=== PATIENT | female | born 1960 | race Caucasian/White ===

== ENCOUNTER 2023-04-21 10:29 | Outpatient (AMB) | payer OTHER, SELFPAY ==
--- NOTE | 2023-04-21 11:14 | AM.OFFWIN_ITS ---
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 Patient Tobacco Use Status: Current everyday Tobacco user Allergies acetaminophen [Percocet] Adverse Reaction (Unknown, Verified 04/21/23 11:14) N/V oxycodone [Percocet] Adverse Reaction (Unknown, Verified 04/21/23 11:14) N/V Do you need a note to return to daycare/school/sports/work: No HPI HPI Comments History of Present Illness Details This is a 62-year-old female with no stated past medical history who uses tobacco daily presenting for evaluation of cough that she has had for the past 3 weeks. Patient states that her cough is significantly worse at night when she is lying down and she will produce mucus. Patient reports mild shortness of breath but denies having any fevers, chills or chest pain. Patient has been using Robitussin [id number] for her cough. Patient denies any recent sick contacts. [facility] Social History Patient Tobacco Use Status: Current everyday Tobacco user Review of Systems Const All systems reviewed & are unremarkable except as noted in HPI and below Eyes Reports no additional complaints ENT Reports no additional complaints Card Denies chest pain and Denies rapid heart rate Resp Reports no additional complaints, Reports cough, Denies hemoptysis, Denies pain with cough, Denies wheezing and Reports other (cough worse when supine) Musc Reports no additional complaints Aller/Immun Denies wheezing Physical Exam Vital Signs: Last Vital Signs Temp 97.9 F 04/21/23 11:34 Pulse 79 04/21/23 11:34 BP 128/70 04/21/23 11:34 Pulse Ox 95 04/21/23 11:34 Oxygen Delivery Method Room Air 04/21/23 11:34 BMI result Body Mass Index 28.4 Const General: cooperative, comfortable and no acute distress Nutritional Appearance: average body habitus Orientation/consciousness: patient oriented x3 Limitations: no limitations HEENT Head: Yes normal to inspection and Yes normocephalic Ears: hearing grossly normal bilaterally, external ears normal, TM's normal bilaterally and EAC's normal Face and sinus: Yes normal facial exam and Yes sinuses nontender Mouth: mucous membranes dry (dry mucous membranes) Teeth and gingiva: dentition normal Throat: Yes posterior oropharynx normal and No postnasal drainage Eyes Eyelids: Yes eyelids normal Conjunctivae: conjunctivae normal EOM: EOMs intact bilaterally Neck Lymphatic: no lymphadenopathy noted Resp Effort & Inspection: normal respiratory effort, able to speak in complete sentences, no cough, no respiratory distress and not tachypneic Auscultation: clear to auscultation bilaterally, no wheezes and diminished lung sounds on the right in the lower lung bowden and on the left in the lower lung bowden Cardio Rate: regular rate Rhythm: regular rhythm Neuro General: patient oriented x3 Psych Appearance: grossly normal Mental Status: mental status grossly normal Insight: Good insight present (Psych) Judgement: Good judgement present (Psych) Results Reviewed Results Reviewed: Chest x.ray reveals no acute findings. Assessment & Plan Assessment & Plan (1) Tobacco use: Code(s): Z72.0 - Tobacco use Plan: Smoking cessation strategies discussed. (2) Cough: Comment: There are no acute findings noted on chest x-ray. Code(s): R05.9 - Cough, unspecified Qualifiers: Cough type: acute Qualified Code(s): R05.1 - Acute cough Plan: Mucinex [id number] daily x7 days, increase clear fluids daily, discussed smoking cessation. Orders: Orders XR chest 2V Today R05.9 - Cough, unspecified, Z72.0 - Tobacco use Coding Level of Care Code New Pt Level 4 (02173) Diagnoses Tobacco use Z72.0 Acute cough R05.1 Cough type: acute Time Spent (min) 30
[2023-04-21 11:34] VITALS: BP 128/70; PULSE 79; TEMP 36.6; O2SAT 95; BMI 28.4
== END 2023-04-21 14:05 | disposition home or self-care (01) ==
PROVIDERS: Visit Provider Physician Assistant
DX: Z72.0 Tobacco use (principal); R05.1 Acute cough
CPT/HCPCS: 99051; 99204

== ENCOUNTER 2023-04-21 11:54 | Outpatient (REF) | payer OTHER, SELFPAY ==
--- NOTE | ~2023-04-21 | XR_ITS ---
EXAMINATION: XR CHEST 2 VIEW CLINICAL INFORMATION: Cough COMPARISON: None TECHNIQUE: PA and lateral views of the chest obtained. FINDINGS: The lungs are clear. There are no pleural effusions. The cardiomediastinal silhouette is normal. XR/XR chest 2V IMPRESSION: No acute cardiopulmonary disease.
== END 2023-04-21 11:55 | disposition home or self-care (01) ==
LOC: HO.HMGCX 11:54
PROVIDERS: Visit Provider Physician Assistant
DX: R05.9 Cough, unspecified (principal); Z72.0 Tobacco use
CPT/HCPCS: 71046

== ENCOUNTER 2023-05-31 14:09 | Outpatient (AMB) | payer OTHER, SELFPAY ==
--- NOTE | 2023-05-31 14:16 | A.OFFPC_ITS ---
Vital Signs 05/31/23 14:18 Height 5 ft 1 in Weight 149 lb 8 oz BMI 28.2 BP 122/78 Blood Pressure Location Rt brachial Position Sitting Pulse 91 Pulse Source Pulse Oximeter Pulse Oximetry (%) 97 Oxygen Delivery Method Room Air Intake Visit Reasons: Annual PE/Est. care Intake Note: Pt is here est care pt needs referral for colon screening pt needs a referral for mammogram Allergies oxycodone [Percocet] Adverse Reaction (Unknown, Verified 05/31/23 14:35) N/V Medication List - Last Reconciled 05/31/23 by BASILIA Beal No Known Home Meds Tobacco use date assessed: 05/31/23 Dental Screening Dental Screen Date: 05/31/23 Did you have a dental visit in the last 12 months?: No Did you have a dental problem in the last 6 months where you did not have access to dental care?: No Was dental information given to patient?: No HPI HPI Comments History of Present Illness Details Patient is a 62-year-old female who I am meeting for the 1st time. Patient was seen in our walk-in clinic 1 month prior for cough, had chest x-ray which revealed no remarkable findings. Patient is current tobacco user. Patient is current EtOH user estimates 5-6 drinks per night. Will draw fasting labs. Patient is due for colonoscopy, will refer. Patient is due for mammogram, will refer. Will refer patient to thoracic surgery for low-dose CT scan cancer screen. Will order patient pulmonary function test. Patient denies referral to OBGYN Patient states she still has intermittent cough. Occasional chest tightness. Will prescribe albuterol inhaler. Will order EKG. Patient denies shortness of breath but does state that after walking up stairs she gets dyspnea on exertion. Denies chest pain, dizziness, nausea, numbness, vomiting, diarrhea PFSH Surgical History (Updated 05/31/23 @ 14:54 by BASILIA Beal) H/O cervical spine surgery Family History Brother Mental health disorder Social History (Updated 05/31/23 @ 14:55 by BASILIA Beal) Housing: House Alcohol intake: current Comment: 5 -6 drinks per night. Patient Tobacco Use Status: Current everyday Tobacco user Cigarette Packs Per Day: 0.5 Cigarettes Per Day: 10 e-Cigarette/Vaping Use: Never Used Second Hand Smoke Exposure: No service: No Current occupational status: retired Questionnaire PHQ-9 Over the last 2 weeks, how often have you been bothered by any of the following problems? 1. Little interest or pleasure in doing things: not at all 2. Feeling down, depressed, or hopeless: not at all 3. Trouble falling or staying asleep, or sleeping too much: not at all 4. Feeling tired or having little energy: not at all 5. Poor appetite or overeating: not at all 6. Feeling bad about yourself - or that you are a failure or have let yourself or your family down: not at all 7. Trouble concentrating on things, such as reading the newspaper or watching television: not at all 8. Moving or speaking so slowly that other people could have noticed. Or the o pposite - being so fidgety or restless that you have been moving around a lot more than usual: not at all 9. Thoughts that you would be better off or of hurting yourself in some way: not at all Total score: 0 Depression Screening Interpretation: Negative Depression Screening Done: Yes 49822 - PHQ-9 Billing: Yes Source: Developed by Drs. Artie Veloz, Felipa Vasquez, Pankaj Carey and colleagues, with an educational tucker from [email or web address]. Thrive Questionnaire Date Thrive assessed: 05/31/23 I am a: Patient What is your living situation today?: I have a steady place to live Within the past 12 months, did the food you bought not last and you didn't have the money to get more?: Never true Within the past 12 months, did you worry whether your food would run out before you got money to buy more?: Never true Do you have trouble paying for medicines?: No Do you have trouble getting transportation to medical appointments?: No Do you have trouble paying your heating and electricity bill?: No Do you have trouble taking care of your child, family member or friend?: No Do you have trouble with day-to-day activities such as bathing, preparing meals, shopping, managing finances, etc.?: No Are you currently unemployed and looking for a job?: No Are you interested in more education?: No THRIVE Score: 0 AUDIT C Alcohol Use Questionnaire (AUDIT-C) 1. How often do you have a drink containing alcohol?: 2-3 times a week 2. How many drinks containing alcohol do you have on a typical day when you are drinking?: 5 or 6 3. How often do you have six or more drinks on one occasion?: Never Total Score: 5 PETRONA-7 AMB Questionnaire PETRONA-7 Date PETRONA - 7 assessed: 05/31/23 Feeling nervous, anxious, or on edge: 0 = Not at all Not being able to stop or control worryin = Not at all Worrying too much about different things: 0 = Not at all Trouble relaxin = Not at all Being so restless that it is hard to sit still: 0 = Not at all Becoming easily annoyed or irritable: 0 = Not at all Feeling afraid as if something awful might happen: 2 = More than half the days Total PETRONA-7 score (0-4 normal; 5-9 mild; 10-14 moderate; 15-21 severe): 2 Source: Developed by Drs. Artie Veloz, Felipa Vasquez, Pankaj Carey and colleagues, with an educational tucker from [email or web address]. PETRONA-7 Assessment Billing PETRONA-7 Assessment Tool: PETRONA-7 Assessment 31884 Review of Systems Const All systems reviewed & are unremarkable except as noted in HPI and below Denies headache(s) Eyes Reports floaters ENT Denies dizziness, Denies otalgia, Denies headache(s) and Denies sore throat Card Denies chest pain, Denies dyspnea and Reports dyspnea on exertion (Walking up stairs or long distances) Resp Denies dyspnea, Reports dyspnea on exertion (Walking up stairs or long distances) and Reports wheezing GI Reports diarrhea, Reports nausea and Reports vomiting Neuro Denies dizziness and Denies headache(s) Aller/Immun Reports wheezing Physical exam (Primary Care) Vital Signs: Last Vital Signs Pulse 91 05/31/23 14:18 BP 122/78 05/31/23 14:18 Pulse Ox 97 05/31/23 14:18 Oxygen Delivery Method Room Air 05/31/23 14:18 Care Plan Goal for BP management: Vital signs reviewed stable. BMI result Body Mass Index 28.2 Tobacco/Smoking Status: Tobacco use Status Tobacco use date assessed 05/31/23 05/31/23 14:25 Patient Tobacco Use Status Current everyday Tobacco 05/31/23 14:25 e-Cigarette/Vaping Use Never Used 05/31/23 14:25 Are you ready to quit: No Depression Screening Interpretation: Negative Const Other: Appearance: Alert.? Oriented X3.? No acute distress.? Head: Normocephalic. Eyes: Pupils equal, round and reactive to light.? ENT: Pharynx normal.? Neck: Normal inspection.? Neck supple.? CVS: Normal heart rate and rhythm.? Pulses normal.? Respiratory: No respiratory distress.? Bilateral wheeze upper lobes. Neuro: Oriented X 3.? No motor deficit.? No sensory deficit. CN 2-12 intact Office Procedures EKG [id number], Complete Assessment and Plan Assessment & Plan (1) Cough: Comment: There are no acute findings noted on chest x-ray. Will order PFT. Code(s): R05.9 - Cough, unspecified Qualifiers: Cough type: acute Qualified Code(s): R05.1 - Acute cough (2) Tobacco use: Comment: Will refer patient to lung cancer screen Code(s): Z72.0 - Tobacco use (3) DAMON (dyspnea on exertion): Comment: Will order albuterol sulfate and PFTs. Patient had abnormal EKG with left bundle branch block. Will also refer echocardiogram and Cardiology. Code(s): R06.09 - Other forms of dyspnea (4) Left bundle branch block: Comment: Will order echocardiogram. Will refer to cardiology. Code(s): I44.7 - Left bundle-branch block, unspecified Plan: Take your medications as prescribed. If you were prescribed antibiotics today, it is important that you take your medication to their entirety, do not skip any doses, do not finish them early. Follow-up with your primary care provider this week. Return to the emergency department with new or worsening symptoms. Such as fevers, chills, chest pain, shortness of breath, nausea, vomiting, dizziness, headache, vision changes, lethargy In case of emergency call 911 Plan follow up in 3 months. Orders: Orders MM tomosynthesis screening BI Today Z12.31 - Encounter for screening mammogram for malignant neoplasm of breast Complete Blood Count Auto Diff Today Z13.0 - Encounter for screening for diseases of the blood and blood-forming organs and certain disorders involving the immune mechanism AMB EKG-In Office Today Z13.6 - Encounter for screening for cardiovascular disorders Comprehensive Met. Panel Today Z91.89 - Other specified personal risk factors, not elsewhere classified Vitamin D 25-OH (D2 and D3) Today Z13.21 - Encounter for screening for nutritional disorder Vitamin B6 Today Z13.21 - Encounter for screening for nutritional disorder Vitamin B12 Today Z91.89 - Other specified personal risk factors, not elsewhere classified UA CC w/rflx Micro + Cult Today Z13.89 - Encounter for screening for other disorder TSH reflex Free T4 Today Z13.29 - Encounter for screening for other suspected endocrine disorder Lipid Panel Today Z13.220 - Encounter for screening for lipoid disorders PFT pulmonary function test Today R06.09 - Other forms of dyspnea Referrals Gastroenterology Referral Z12.11 - Encounter for screening for malignant neoplasm of colon Thoracic Surgery Referral Z12.2 - Encounter for screening for malignant neoplasm of respiratory organs Medications: New albuterol sulfate 90 mcg/actuation 2 puffs inhalation Q6H PRN 6.7 grams 0RF shortness of breath or wheezing Coding Level of Care Code Est Pt Level 4 (81915) Diagnoses Acute cough R05.1 Cough type: acute Tobacco use Z72.0 DAMON (dyspnea on exertion) R06.09 Left bundle branch block I44.7 CPT Codes EKG - CPT: 60402-[id number], Complete ([id number]) Additional Codes PETRONA-7 Assessment Billing - PETRONA-7 Assessment Tool: PETRONA-7 Assessment 13651 ([id number]) Time Spent (min) 38
[2023-05-31 14:18] VITALS: BP 122/78; PULSE 91; O2SAT 97; BMI 28.2
== END 2023-05-31 15:13 | disposition home or self-care (01) ==
PROVIDERS: Visit Provider Nurse Practitioner Primary Care
DX: R06.09 Other forms of dyspnea (principal); I44.7 Left bundle-branch block, unspecified
CPT/HCPCS: 93000; 99214

== ENCOUNTER 2023-07-09 12:46 | Outpatient (REF) | payer OTHER, SELFPAY ==
--- NOTE | ~2023-07-09 | MM_ITS ---
EXAMINATION: MM SCREENING DIGITAL BREAST TOMOSYNTHESIS, BILATERAL CLINICAL INFORMATION: Screening. Asymptomatic. COMPARISON: Mammography: This study is compared with the only prior mammogram from 2009. TECHNIQUE: Digital breast tomosynthesis is performed in both the craniocaudal and mediolateral oblique views along with computer-aided detection (CAD). Synthesized 2D images are generated from the tomosynthesis. FINDINGS: There are scattered areas of fibroglandular density (ACR BI-RADS breast composition Category b). There are no significant masses, abnormal calcifications, or other abnormalities. MM/MM tomosynthesis screening BI IMPRESSION: No mammographic evidence of malignancy. ASSESSMENT: BI-RADS BI-RADS 1 - Negative RECOMMENDATION: Routine annual mammography screening. 1 year F/U This examination should not preclude the clinical evaluation of a suspicious palpable abnormality. This patient's information was entered into a reminder system with a target due date for their next mammogram.
== END 2023-07-09 12:47 | disposition home or self-care (01) ==
LOC: HO.MAMMO 12:46
PROVIDERS: PCP Nurse Practitioner Primary Care; Visit Provider Nurse Practitioner Primary Care
DX: Z12.31 Encounter for screening mammogram for malignant neoplasm of breast (principal)
CPT/HCPCS: 77063; 77067

== ENCOUNTER → 2023-07-09 13:30 | Outpatient (BNV) | payer OTHER, SELFPAY | PROVIDERS: PCP Nurse Practitioner Primary Care; Visit Provider Radiology Diagnostic Radiology | DX: Z12.31 Encounter for screening mammogram for malignant neoplasm of breast (principal) | CPT/HCPCS: 77063; 77067 ==

== ENCOUNTER 2023-11-16 01:39 | Emergency (ER) | payer OTHER, SELFPAY ==
--- NOTE | 2023-11-16 | ECG_ITS ---
Test Reason : CHEST PAIN Blood Pressure : / mmHG Vent. Rate : 105 BPM Atrial Rate : 105 BPM P-R Int : 148 ms QRS Dur : 166 ms QT Int : 402 ms P-R-T Axes : 066 -02 139 degrees QTc Int : 531 ms Sinus tachycardia Left bundle branch block Abnormal ECG No previous ECGs available Referred By: Generic ED Physician Electronically Signed By:VANGIE WAKEFIELD
--- NOTE | ~2023-11-16 | XR_ITS ---
EXAMINATION: XR CHEST CLINICAL INFORMATION: Dyspnea. COMPARISON: April 21, 2023. TECHNIQUE: Frontal view of the chest was obtained. FINDINGS: The cardiomediastinal silhouette is stable. There is no focal lung consolidation or pleural effusion. The bony structures and the soft tissues are unremarkable. XR/XR chest 1V IMPRESSION: No acute cardiopulmonary process. Electronically signed by: Deejay Pimentel MD 11/16/2023 03:39 AM EDT
[2023-11-16 01:44] VITALS: BP 113/79; PULSE 104; RESP 22; TEMP 36.8; O2SAT 95; BMI 24.3
[2023-11-16 02:09] LABS: MANUAL DIFF FLAG NO
[2023-11-16 02:10] LABS: Basophils Percent Auto 0.3 % (0-2); Eosinophils Absolute Auto 0.2 X10*3/uL (0.0-0.4); Eosinophils Percent Auto 2.7 % (0-4); Hematocrit 42.7 % (37.0-47.0); Hemoglobin 14.4 g/dl (12.0-16.0); Imm Gran Abs Auto 0.03 X10*3/uL (0.00-0.03); Imm Gran Pct Auto 0.4 % (0.0-0.4); Lymphocytes Percent Auto 29.8 % (20-40); Mean Corpuscular HGB Conc 33.7 g/dl (31.0-35.0); Mean Corpuscular Hemoglobin 32.6 pg (27.0-33.0); Mean Corpuscular Volume 96.6 fL (80.0-98.0); Mean Platelet Volume 9.4 fL (9.4-12.3); Monocytes Absolute Auto 0.8 X10*3/uL (0.1-1.2); Monocytes Percent Auto 12.2 % (2-11); Neutrophils Absolute Auto 3.7 x10*3/uL (2.0-8.3); Neutrophils Percent Auto 54.6 % (45-73); Platelet Count 194 X10*3/uL (160-400); Red Blood Count 4.42 X10*6/uL (4.20-5.50); Red Cell Distribution Width 13.6 % (11.0-16.0); White Blood Count 6.7 X10*3/uL (4.8-10.8)
[2023-11-16 02:24] LABS: Alanine Aminotransferase 27 U/L (0-31); Albumin Level 3.9 g/dL (3.5-5.0); Alkaline Phosphatase 94 U/L (39-117); Anion Gap 14 (12-20); Aspartate Amino Transferase 26 U/L (5-31); Bilirubin Total 0.4 mg/dL (0.0-1.0); Blood Urea Nitrogen 4 mg/dL (9-16); Carbon Dioxide 19 mmol/L (22-29); Chloride 106 mmol/L (96-108); Creatinine Clr Calc Pharmacy 70.9; Estimated Glomerular Filt Rate > 60; Glucose Random 102 mg/dL (60-115); Potassium 4.1 mmol/L (3.3-5.1); Sodium 135 mmol/L (135-145); Total Protein 6.3 g/dL (6.5-8.0)
[2023-11-16 02:30] LABS: Troponin-I High Sensitivity 10.5 ng/L (<3.5-17.0)
[2023-11-16 02:46] LABS: Influenza A PCR NEGATIVE (Negative); Influenza B PCR NEGATIVE (Negative); Resp Syncy Virus RNA Qual PCR NEGATIVE (Negative); SARS COV2 PCR INHOUSE NEGATIVE (Negative)
--- NOTE | 2023-11-16 03:45 | ED_ITS ---
HPI - General Adult General Chief complaint: Dyspnea Stated complaint: diff breathing Time Seen by Provider: 11/16/23 03:45 History of Present Illness ED Provider: Lyudmila TIWARI narrative: The patient is a 63-year-old female who has been feeling worse over the last 5 days with increasing cough and sputum production. She says that when she lays down she feels that she gets increasing congestion in her chest so that she can not get any rest lying down and she can not sleep. No definite fevers. Related Data Previous Rx's ?Medication ?Instructions ?Recorded albuterol sulfate 90 mcg/actuation 2 puff inhalation Q6H PRN 05/31/23 aerosol inhaler shortness of breath or wheezing #6.7 grams albuterol sulfate 90 mcg/actuation 2 puff inhalation Q4-6H PRN 11/16/23 aerosol inhaler shortness of breath or wheezing #8.5 grams azithromycin 250 mg tablet 250 mg PO DAILY 4 days #4 tabs 11/16/23 prednisone 20 mg tablet 20 mg PO DAILY #12 tabs 11/16/23 Allergies Allergy/AdvReac Type Severity Reaction Status Date / Time oxycodone [Percocet] AdvReac Unknown N/V Verified 11/16/23 01:47 Review of Systems 2 Review of Systems: Yes all other systems are reviewed and are negative PMFSH Past Medical History Medical History (Updated 11/16/23 @ 06:28 by Angel Luis Coreas MD) Nicotine dependence, cigarettes, uncomplicated Surgical History (Updated 07/30/23 @ 15:13 by Rocio Loo PA-C) History of cervical spinal surgery Family History Family History Brother Mental health disorder Social History Social History (Updated 05/31/23 @ 14:55 by BASILIA Beal) Housing: House Alcohol intake: current Comment: 5 -6 drinks per night. Patient Tobacco Use Status: Current everyday Tobacco user Cigarette Packs Per Day: 0.5 Cigarettes Per Day: 10 e-Cigarette/Vaping Use: Never Used Second Hand Smoke Exposure: No Advance Directives: No Advance Directives Information Provided: No service: No Current occupational status: retired Physical Exam ED Vital Signs: Vital Signs - 24 hr 11/16/23 01:44 11/16/23 04:10 11/16/23 04:23 Temperature 98.3 F 97.7 F Pulse Rate 104 H 95 95 Respiratory Rate 22 H 16 16 Blood Pressure 113/79 133/72 Pulse Oximetry 95 98 Oxygen Delivery Method Room Air Room Air BMI result Body Mass Index 24.3 Const Other: The patient is awake and alert. She does not appear in distress. HENMT Other: Face is symmetrical. Mucous membranes moist. Eyes General: appearance normal, both eyes and all related structures Neck Neck: Yes no JVD Resp Other: The patient has a lot of expiratory wheezes. Inspiratory breath sounds are clear but her expiratory breath sounds are very wheezy and rhonchorous. No increased work of breathing. Cardio Rate: regular rate Rhythm: regular rhythm Heart sounds: S1 normal heart sound present and S2 normal heart sound present Skin Other: Skin is dry and unremarkable. Neuro Other: The patient is awake and alert with a normal mental status. Cranial nerves are grossly intact. She moves her extremities normally. Extrem Other: No calf swelling or tenderness, no pedal edema, no asymmetry Medications Administered Discontinued Medications Generic Name Dose Route Start Last Admin Trade Name Freq PRN Reason Stop Dose Admin Azithromycin 500 mg 11/16/23 03:50 11/16/23 04:10 Azithromycin 500 Mg Tablet PO 11/16/23 03:51 500 mg ONCE ONE Administration Albuterol Sulfate 2.5 mg/ 0 mg 11/16/23 03:50 11/16/23 04:07 Albuterol/Ipratropium 3 ml INHALE 11/16/23 03:51 5 dose ONCE ONE Administration Albuterol Sulfate 2.5 mg/ 0 mg 11/16/23 05:07 11/16/23 05:18 Albuterol/Ipratropium 3 ml INHALE 11/16/23 05:08 5 dose ONCE ONE Administration Prednisone 60 mg 11/16/23 03:50 11/16/23 04:10 Prednisone 20 Mg Tablet PO 11/16/23 03:51 60 mg ONCE ONE Administration Medical Decision Making Lab Data 11/16/23 02:03 11/16/23 02:03 Labs: Lab Results 11/16/23 Range/Units 02:03 WBC 6.7 (4.8-10.8) X10*3/uL RBC 4.42 (4.20-5.50) X10*6/uL Hgb 14.4 (12.0-16.0) g/dl Hct 42.7 (37.0-47.0) % MCV 96.6 (80.0-98.0) fL MCH 32.6 (27.0-33.0) pg MCHC 33.7 (31.0-35.0) g/dl RDW 13.6 (11.0-16.0) % Plt Count 194 (160-400) X10*3/uL MPV 9.4 (9.4-12.3) fL Immature Gran % (Auto) 0.4 (0.0-0.4) % Neut % (Auto) 54.6 (45-73) % Lymph % (Auto) 29.8 (20-40) % [place] % (Auto) 12.2 H (2-11) % Eos % (Auto) 2.7 (0-4) % Baso % (Auto) 0.3 (0-2) % Lymph # (Auto) 2.0 (1.2-4.9) X10*3/uL [place] # (Auto) 0.8 (0.1-1.2) X10*3/uL Eos # (Auto) 0.2 (0.0-0.4) X10*3/uL Baso # (Auto) 0.0 (0.0-0.2) X10*3/uL Abs Immat Gran (auto) 0.03 (0.00-0.03) X10*3/uL Absolute Neuts (auto) 3.7 (2.0-8.3) x10*3/uL Absolute Nucleated RBC 0.000 (0.0-0.012) X10*3/uL Nucleated RBC % (auto) 0.0 (0.0-0.2) /100WBC Sodium 135 (135-145) mmol/L Potassium 4.1 (3.3-5.1) mmol/L Chloride 106 (96-108) mmol/L Carbon Dioxide 19 L (22-29) mmol/L Anion Gap 14 (12-20) BUN 4 L (9-16) mg/dL Creatinine 0.75 (0.5-1.4) mg/dL Estim Creat Clear Calc 70.9 Estimated GFR > 60 Random Glucose 102 (60-115) mg/dL Calcium 9.0 (8.4-10.2) mg/dL Total Bilirubin 0.4 (0.0-1.0) mg/dL AST 26 (5-31) U/L ALT 27 (0-31) U/L Alkaline Phosphatase 94 (39-117) U/L Troponin I High Sens 10.5 (<3.5-17.0) ng/L Total Protein 6.3 L (6.5-8.0) g/dL Albumin 3.9 (3.5-5.0) g/dL Influenza Type A (PCR) NEGATIVE (Negative) Influenza Type B (PCR) NEGATIVE (Negative) RSV RNA Qual (PCR) NEGATIVE (Negative) SARS-CoV-2 RNA (RT-PCR) NEGATIVE (Negative) Independent Interpretation I performed an independent interpretation of an: EKG Interpretation: EKG at 01:48 shows sinus tachycardia at 105 beats per minute. There is a left bundle branch block. There is an EKG from 06/01/2023 which also shows a left bundle branch block. Therefore today's left bundle branch block is old. Discharge Plan Discharge Clinical Impression: Acute exacerbation of chronic obstructive pulmonary disease Patient Disposition: Home, Self-Care Instructions: COPD (Chronic Obstructive Pulmonary Disease) (ED), How to Use a Metered-Dose Inhaler (ED) Additional Instructions: I have sent a prescription for additional prednisone (a steroid medication) and azithromycin (an antibiotic) to your pharmacy. Please take the prednisone once a day for the next 5 days. Please take the azithromycin once a day for the next 4 days. I have also sent a prescription for another albuterol inhaler to your pharmacy in case your current inhaler runs out. You may use the albuterol 2 puffs every 4-6 hours as needed. Drink lot of fluids. Do your best to reduce or stop smoking. Please follow up with your regular doctor's office. Contact them with any questions. If you feel significantly worse at any time please return to the emergency department. Prescriptions: New prednisone 20 mg tablet 20 mg PO DAILY Qty: 12 0RF Rx Instructions: Take 3 tablets daily by mouth for 2 days then 2 tablets daily by mouth for 3 days azithromycin 250 mg tablet 250 mg PO DAILY 4 Days Qty: 4 0RF Rx Instructions: start on day 2 of therapy albuterol sulfate 90 mcg/actuation HFA aerosol inhaler 2 puff inhalation Q4-6H PRN (Reason: shortness of breath or wheezing) Qty: 8.5 0RF No Action albuterol sulfate 90 mcg/actuation HFA aerosol inhaler 2 puff inhalation Q6H PRN (Reason: shortness of breath or wheezing) Qty: 6.7 0RF Referrals: Piero Mendoza FNP [Nurse Practitioner] - (COPD exacerbation) Print Language: Sami
[2023-11-16] MEDS: Albuterol Sulfate 2.5 MG, Albuterol/Iprat 2.5/0.5MG 3 ML 3 ML INHALE ×2 (04:07→05:18)
[2023-11-16 04:10] VITALS: PULSE 95; RESP 16; O2SAT 96
[2023-11-16] MEDS: predniSONE 20 MG TABLET 60 MG PO (04:10)
[2023-11-16] MEDS: Azithromycin 500 MG TABLET PO (04:10)
[2023-11-16 04:23] VITALS: BP 133/72; PULSE 95; RESP 16; TEMP 36.5; O2SAT 98
[2023-11-16 06:42] VITALS: BP 138/84; PULSE 88; RESP 18; TEMP 36.9; O2SAT 98
== END 2023-11-16 06:45 | disposition home or self-care (01) ==
PROVIDERS: Emergency Provider Emergency Medicine
DX: J44.1 Chronic obstructive pulmonary disease with (acute) exacerbation (principal); Z03.818 Encounter for observation for suspected exposure to other biological agents ruled out; R05.9 Cough, unspecified; I44.7 Left bundle-branch block, unspecified; F17.210 Nicotine dependence, cigarettes, uncomplicated
CPT/HCPCS: 0241U; 36415; 71045; 80053; 84484; 85025; 93005; 94640; 99284

== ENCOUNTER 2023-11-19 13:59 | Outpatient (AMB) | payer OTHER, SELFPAY ==
[2023-11-19 14:09] VITALS: BP 136/74; PULSE 85; TEMP 36.6; O2SAT 98; BMI 24.2
--- NOTE | 2023-11-19 14:09 | AM.OFFWIN_ITS ---
Intake Vital Signs 11/19/23 14:09 Height 5 ft 6 in Weight 150 lb BMI 24.2 BP 136/74 Blood Pressure Location Rt brachial Position Sitting Pulse 85 Pulse Source Pulse Oximeter Temp 97.8 F Temp Source Temporal Artery Scan Pulse Oximetry (%) 98 Intake Visit Reasons: EP-sob, congestion, Pt came into the [facility] c/o shortness of b Intake Note: pt is here for SOB, congestion. Pt stated that shortness of breath started on Sunday. Pt speaks in full sentences. Color pink warm and dry. Pt stated that she stopped smoking on Sunday. O2 sat 97% on room air and heart rate 87. Lungs - congested with exp. wheezing noted. Gwen VILLATORO was aware. Zoe Berry RN. Allergies oxycodone [Percocet] Adverse Reaction (Unknown, Verified 11/16/23 01:47) N/V HPI EP-sob, congestion HPI Details This note is constructed using voice recognition software. While every effort has been made to ensure accuracy, multiple resaw operator errors may have been included. The patient is a 63 year old female who presents to the clinic today with ongoing cough. She reports that she was seen in the emergency room on Sunday for the same after having increased the secretions and some dyspnea with cough. She was discharged with azithromycin, prednisone with a short taper, as well as albuterol inhaler. She is starting to feel somewhat better, however not resolve. Today she took a 1st dose of the lower dose of the prednisone. She denies fever, chills, dyspnea at rest, body aches. In the emergency room she was tested for viral panel. She notes that as a result of her symptoms, she quit smoking on Sunday after she has been smoking about a half a pack a day for the last 14 years. She did smoke prior to that, however he had been 16 years without smoking when she had restarted 14 years ago. [facility] Medical History (Updated 11/17/23 @ 00:02 by Lizzie De Souza) Nicotine dependence, cigarettes, uncomplicated Surgical History (Updated 07/30/23 @ 15:13 by Rocio Loo PA-C) History of cervical spinal surgery Family History Brother Mental health disorder Social History (Updated 04/11/24 @ 14:55 by JOAO Beal Housing: House Alcohol intake: current Comment: 5 -6 drinks per night. Cigarette Packs Per Day: 0.5 Cigarettes Per Day: 10 e-Cigarette/Vaping Use: Never Used Second Hand Smoke Exposure: No service: No Current occupational status: retired Review of Systems Const All systems reviewed & are unremarkable except as noted in HPI and below Physical Exam Vital Signs: Last Vital Signs Temp 97.8 F 11/19/23 14:09 Pulse 85 11/19/23 14:09 BP 136/74 11/19/23 14:09 Pulse Ox 98 11/19/23 14:09 BMI result Body Mass Index 24.2 Const General: cooperative, healthy appearing, comfortable, no acute distress and alert Orientation/consciousness: patient oriented x3 Limitations: no limitations HEENT Head: Yes normal to inspection and Yes normocephalic Ears: hearing grossly normal bilaterally General nose exam: Normal external nose present Face and sinus: Yes normal facial exam and Yes sinuses nontender Mouth: Normal oral and palatal mucosa present and tongue normal Teeth and gingiva: dentition normal Throat: Yes posterior oropharynx normal Eyes General: appearance normal, both eyes and all related structures Neck Neck: Yes normal visual inspection, Yes full ROM and Yes no lymphadenopathy Resp Effort & Inspection: normal respiratory effort and able to speak in complete sentences Auscultation: clear to auscultation bilaterally Cardio Jugular venous distension: no JVD Palpation: normal PMI Rate: regular rate Heart sounds: S1 normal heart sound present, S2 normal heart sound present, no click, no gallops, no murmurs and no rubs Skin General skin exam: no rashes or lesions noted, elasticity normal and turgor normal Neuro General: patient oriented x3 Psych Appearance: grossly normal Mental Status: mental status grossly normal Speech and movement: Normal speech and movement present Affect: normal affect Assessment & Plan Assessment & Plan (1) COPD exacerbation: Code(s): J44.1 - Chronic obstructive pulmonary disease with (acute) exacerbation Plan: ER notes and reports reviewed. The patient is having some improvement in symptoms, however was sent home with a short taper of prednisone from 60 mg for 2 days, down to 40 mg for 2 days and she is now on the 40 mg with no improvement in symptoms when she had stepped down. Given that her symptoms are persistent, and she did have some improvement, we elected to do a prolonged prednisone taper for 10 days to help elicit improvement of symptoms. Advised continuation of inhalers as needed. Elected not to restart antibiotics due to her current progression. Advised patient to follow up with any worsening or failure to resolve. Advised emergency room should she develop dyspnea at rest. Plan See above for full details and plan. Medications: New prednisone 5 tablets daily for 2 days, then 4 tablets daily for 2 days, then 3 tablets daily for 2 days, then 2 tablets daily for 2 days, then 1 tablet daily for 2 days. 10 mg PO DIRECTED 30 tabs 0RF Coding Level of Care Code Est Pt Level 4 (77316) Diagnoses COPD exacerbation J44.1
== END 2023-11-19 15:18 | disposition home or self-care (01) ==
PROVIDERS: Visit Provider Registered Nurse
DX: J44.1 Chronic obstructive pulmonary disease with (acute) exacerbation (principal)

== ENCOUNTER → 2023-11-19 13:59 | Outpatient (BNVA) | payer OTHER, SELFPAY | PROVIDERS: Visit Provider Registered Nurse | DX: J44.1 Chronic obstructive pulmonary disease with (acute) exacerbation (principal) | CPT/HCPCS: 99212 ==

== ENCOUNTER 2023-12-24 12:35 | Outpatient (AMB) | payer OTHER, SELFPAY ==
--- NOTE | 2023-12-24 12:38 | MHC.PC.OV ---
Vital Signs 12/24/23 12:46 Height 5 ft 6 in Weight 154 lb 8 oz BMI 24.9 BP 122/70 Blood Pressure Location Lt brachial Position Sitting Respiration 13 Pulse 93 Pulse Source Pulse Oximeter Pulse Oximetry (%) 97 Oxygen Delivery Method Room Air Intake Visit Reasons: POLLY from [place]/Disability paperwork Intake Note: transfer of care to establish care Stone Trimmer Required: No Allergies oxycodone [Percocet] Adverse Reaction (Unknown, Verified 12/24/23 13:14) N/V Medication List - Last Reconciled 12/24/23 by [facility] No Known Home Meds Tobacco use date assessed: 12/24/23 Fall risk assessment: No Falls in past year Last assessed Fall Risk: 12/24/23 Dental Screening Dental Screen Date: 12/24/23 Did you have a dental visit in the last 12 months?: Yes Did you have a dental problem in the last 6 months where you did not have access to dental care?: No Was dental information given to patient?: Patient has dentist HPI HPI Comments History of Present Illness Details Carlota 63-year-old female with former tobacco smoker, COPD, ETOH abuse, left bundle branch block, cardiomyopathy, echocardiogram 2006 mildly decreased left ventricular systolic function, ejection fraction 40-45%, diffuse left ventricular hypokinesis, mild mitral valve regurg Negative sleep study in 2001 Status post cervical spine surgery [address] Dr. Dubose Health Maintenance: ? Colon referred today ? Mammo 07/09/2023 ? DEXA ? PAP declined ? Tdap declined, Flu declined Specialists: Lung cancer screening program, referred today smoke 1/2 pack per day x 15 years, QUIT in 11/2023 Cards referred today GI referred today Here today to establish care. Her chief complaint is that of palpitations associated with feeling like she was going to pass out from time to time. Reports that she struggles to stay awake. She has dyspnea on exertion with walking short distances. She is not active with Cardiology at this time. Review of her records show an echocardiogram last done in 2006. She was also had a nuclear stress test along with other cardiology procedures. Reports some procedure done in the past stop and start my heart or something when my was alive. Not sure exactly when that was. She reports that she does have some edema bilateral lower extremity that comes and goes. She is not currently on any medications other than a muscle relaxer to help with her chronic upper back spasms. She was status post surgery in 2020 She is a daily everyday drinker a few beers per day. She was smoking a half a pack per day for 15 years. She just quit last month. She would like to be referred to the lung cancer screening program Exam Awake alert NAD RRR LS CTAB No edema BLE Plan Offered and declined EKG to be done today. Check echocardiogram and Holter monitor. Check labs. Refer to cardiology. Referral placed to gastroenterology for 1st screening colonoscopy. Referred to the lung cancer screening program. I would like to see her back in 4-6 weeks to follow up on the above. Sooner as needed. Edu on reasons to seek eval and tx in the ED. This note is constructed using voice recognition software. While every effort has been made to ensure accuracy in personal health coach, still errors may have been included Sometimes, these errors may affect the content or meaning of the given sentence . Total time spent caring for the patient today was 45 minutes. This includes time spent before the visit reviewing the chart, time spent during the visit, and time spent after the visit on documentation [facility] Medical History (Updated 12/24/23 @ 17:13 by Leigha Talamantes [facility]) SOB (shortness of breath) Nicotine dependence, cigarettes, uncomplicated Surgical History (Updated 07/30/23 @ 15:13 by Rocio Loo PA-C) History of cervical spinal surgery Family History (Updated 12/24/23 @ 12:45 by Jacquie Currie MA) Brother Mental health disorder Cardiovascular disease Mother Hypertension Father Cardiovascular disease Other Cancer Social History (Updated 12/24/23 @ 12:46 by Jacquie Currie MA) Household Members: None Both parents involved: No Caregiver staying overnight: No Housing: House Are you a primary child care sitter to a significant other at home: No Do you presently have visiting nurse or other home services: No 75 years or older and lives alone: No Alcohol intake: current Comment: 5 -6 drinks per night. Patient Tobacco Use Status: Former Tobacco user Cigarette Packs Per Day: 0.5 Cigarettes Per Day: 10 Years Smoked: 10 e-Cigarette/Vaping Use: Never Used Second Hand Smoke Exposure: No service: No Current occupational status: retired Cognitive needs: No Hearing needs: Yes Vision needs: Yes (wear glasses) Questionnaire PHQ-9 Over the last 2 weeks, how often have you been bothered by any of the following problems? 1. Little interest or pleasure in doing things: not at all 2. Feeling down, depressed, or hopeless: not at all 3. Trouble falling or staying asleep, or sleeping too much: not at all 4. Feeling tired or having little energy: nearly every day 5. Poor appetite or overeating: more than half the days 6. Feeling bad about yourself - or that you are a failure or have let yourself or your family down: not at all 7. Trouble concentrating on things, such as reading the newspaper or watching television: more than half the days 8. Moving or speaking so slowly that other people could have noticed. Or the opposite - being so fidgety or restless that you have been moving around a lot more than usual: not at all 9. Thoughts that you would be better off or of hurting yourself in some way: not at all Total score: 7 Depression Screening Interpretation: Negative Depression Screening Done: Yes 56985 - PHQ-9 Billing: Yes Source: Developed by Drs. Artie Veloz, Felipa Vasquez, Pankaj Carey and colleagues, with an educational tucker from [employer]. Thrive Questionnaire Date Thrive assessed: 12/24/23 I am a: Patient What is your living situation today?: I choose not to answer this question Within the past 12 months, did the food you bought not last and you didn't have the money to get more?: I choose not to answer this question Within the past 12 months, did you worry whether your food would run out before you got money to buy more?: I choose not to answer this question Do you have trouble paying for medicines?: I choose not to answer this question Do you have trouble getting transportation to medical appointments?: I choose not to answer this question Do you have trouble paying your heating and electricity bill?: I choose not to answer this question Do you have trouble taking care of your child, family member or friend?: I choose not to answer this question Do you have trouble with day-to-day activities such as bathing, preparing meals, shopping, managing finances, etc.?: I choose not to answer this question Are you currently unemployed and looking for a job?: I choose not to answer this question Are you interested in more education?: I choose not to answer this question Please select the resources that you would like help with: None Currently or been in a relationship where the following occur: No concerns reported THRIVE Score: 0 AUDIT C Alcohol Use Questionnaire (AUDIT-C) 1. How often do you have a drink containing alcohol?: 4 or more times a week 2. How many drinks containing alcohol do you have on a typical day when you are drinking?: 5 or 6 3. How often do you have six or more drinks on one occasion?: Weekly Total Score: 9 Score Reviewed/Action Taken: Yes PETRONA-7 AMB Questionnaire PETRONA-7 Date PETRONA - 7 assessed: 12/24/23 Feeling nervous, anxious, or on edge: 0 = Not at all Not being able to stop or control worryin = Not at all Worrying too much about different things: 0 = Not at all Trouble relaxin = Not at all Being so restless that it is hard to sit still: 0 = Not at all Becoming easily annoyed or irritable: 0 = Not at all Feeling afraid as if something awful might happen: 0 = Not at all Total PETRONA-7 score (0-4 normal; 5-9 mild; 10-14 moderate; 15-21 severe): 0 Source: Developed by Drs. Artie Veloz, Felipa Vasquez, Pankaj Carey and colleagues, with an educational tucker from [employer]. PETRONA-7 Assessment Billing PETRONA-7 Assessment Tool: PETRONA-7 Assessment 21137 Physical exam (Primary Care) Vital Signs: Last Vital Signs Pulse 93 12/24/23 12:46 Resp 13 12/24/23 12:46 BP 122/70 12/24/23 12:46 Pulse Ox 97 12/24/23 12:46 Oxygen Delivery Method Room Air 12/24/23 12:46 BMI result Body Mass Index 24.9 Tobacco/Smoking Status: Tobacco use Status Tobacco use date assessed 12/24/23 12/24/23 12:48 Patient Tobacco Use Status Former Tobacco user 12/24/23 12:48 e-Cigarette/Vaping Use Never Used 12/24/23 12:46 PHQ-9: PHQ-9 Score PHQ-9: Total score 7 12/24/23 13:27 Depression Screening Interpretation: Negative Thrive Assessment: Date of Thrive Assessment Date Thrive assessed 12/24/23 12/24/23 12:39 Currently or been in a relationship where the following occur: No concerns reported Coding Level of Care Code Est Pt Level 5 (45191) Complex EM visit Add On G2211 Diagnoses DAMON (dyspnea on exertion) R06.09 Left bundle branch block I44.7 Chronic diastolic congestive heart failure I50.32 Heart failure type: diastolic Heart failure chronicity: chronic Former smoker Z87.891 Palpitations R00.2 Simple chronic bronchitis J41.0 COPD type: chronic bronchitis Chronic bronchitis type: simple Uncomplicated alcohol dependence F10.20 Substance use status: uncomplicated Screen for colon cancer Z12.11 Additional Codes PETRONA-7 Assessment Billing - PETRONA-7 Assessment Tool: PETRONA-7 Assessment 40622 ([id number]) Assessment & Plan Assessment & Plan (1) DAMON (dyspnea on exertion): Code(s): R06.09 - Other forms of dyspnea Category: Medical Plan: . (2) Left bundle branch block: Comment: Will order echocardiogram. Will refer to cardiology. Code(s): I44.7 - Left bundle-branch block, unspecified Category: Medical Plan: . (3) CHF (congestive heart failure): Code(s): I50.9 - Heart failure, unspecified Category: Medical Qualifiers: Heart failure type: diastolic Heart failure chronicity: chronic Qualified Code(s): I50.32 - Chronic diastolic (congestive) heart failure Plan: . (4) Former smoker: Comment: 2 PPD x 15 years, quit 11/2023 Code(s): Z87.891 - Personal history of nicotine dependence Category: Social Hx Plan: . (5) Palpitations: Code(s): R00.2 - Palpitations Category: Medical Plan: . (6) COPD (chronic obstructive pulmonary disease): Code(s): J44.9 - Chronic obstructive pulmonary disease, unspecified Category: Medical Qualifiers: COPD type: chronic bronchitis Chronic bronchitis type: simple Qualified Code(s): J41.0 - Simple chronic bronchitis Plan: . (7) EtOH dependence: Code(s): F10.20 - Alcohol dependence, uncomplicated Category: Medical Qualifiers: Substance use status: uncomplicated Qualified Code(s): F10.20 - Alcohol dependence, uncomplicated Plan: . (8) Screen for colon cancer: Code(s): Z12.11 - Encounter for screening for malignant neoplasm of colon Category: Medical Plan: . Orders: Orders Lipid Panel Today I44.7 - Left bundle-branch block, unspecified, I50.9 - Heart failure, unspecified, R00.2 - Palpitations TSH reflex Free T4 Today I44.7 - Left bundle-branch block, unspecified, I50.9 - Heart failure, unspecified, R00.2 - Palpitations Vitamin D 25-OH Total Today I44.7 - Left bundle-branch block, unspecified, I50.9 - Heart failure, unspecified, R00.2 - Palpitations Magnesium Today I44.7 - Left bundle-branch block, unspecified, I50.9 - Heart failure, unspecified, R00.2 - Palpitations ECG 3 day holter monitor Today R00.2 - Palpitations Comprehensive Met. Panel Today I44.7 - Left bundle-branch block, unspecified, I50.9 - Heart failure, unspecified, R00.2 - Palpitations Hemoglobin A1c Today I44.7 - Left bundle-branch block, unspecified, I50.9 - Heart failure, unspecified, R00.2 - Palpitations Microalbumin, Random (w Creat) Today I44.7 - Left bundle-branch block, unspecified, I50.9 - Heart failure, unspecified, R00.2 - Palpitations CA echo transthoracic complete Today I50.9 - Heart failure, unspecified, R00.2 - Palpitations Referrals Cardiology Referral I44.7 - Left bundle-branch block, unspecified, I50.9 - Heart failure, unspecified, R06.09 - Other forms of dyspnea Gastroenterology Referral Z12.11 - Encounter for screening for malignant neoplasm of colon Lung Cancer Screening Referral Z87.891 - Personal history of nicotine dependence
[2023-12-24 12:46] VITALS: BP 122/70; PULSE 93; RESP 13; O2SAT 97; BMI 24.9
== END 2023-12-24 13:36 | disposition home or self-care (01) ==
LOC: HO.HMCFM 12:35
PROVIDERS: PCP Nurse Practitioner Family; Visit Provider Nurse Practitioner Family
DX: I50.32 Chronic diastolic (congestive) heart failure (principal); J41.0 Simple chronic bronchitis; F10.20 Alcohol dependence, uncomplicated; R06.09 Other forms of dyspnea; I44.7 Left bundle-branch block, unspecified; Z87.891 Personal history of nicotine dependence; R00.2 Palpitations; Z12.11 Encounter for screening for malignant neoplasm of colon

== ENCOUNTER → 2023-12-24 12:35 | Outpatient (BNVA) | payer OTHER, SELFPAY | PROVIDERS: PCP Nurse Practitioner Family; Visit Provider Nurse Practitioner Family | DX: R06.09 Other forms of dyspnea (principal); I44.7 Left bundle-branch block, unspecified; I50.32 Chronic diastolic (congestive) heart failure; R00.2 Palpitations; J41.0 Simple chronic bronchitis; F10.20 Alcohol dependence, uncomplicated; Z87.891 Personal history of nicotine dependence | CPT/HCPCS: 96127; 99212 ==

== ENCOUNTER 2024-01-28 11:12 | Outpatient (AMB) | payer OTHER, SELFPAY ==
--- NOTE | 2024-01-28 11:16 | A.OFFPC_ITS ---
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 Required: No Allergies oxycodone [Percocet] Adverse Reaction (Unknown, Verified 01/28/24 11:20) N/V Medication List - Last Reconciled 01/28/24 by BASILIA Veloz- No Known Home Meds Tobacco use date assessed: 12/24/23 Dental Screening Dental Screen Date: 12/24/23 HPI HPI Comments 2 History of Present Illness Details Carlota 63-year-old female with former tobacco s moker, COPD, ETOH abuse, left bundle branch block, cardiomyopathy, echocardiogram 2006 mildly decreased left ventricular systolic function, ejection fraction 40-45%, diffuse left ventricular hypokinesis, mild mitral valve regurg Negative sleep study in 2001 Status post cervical spine surgery 2020 Dr. Dubose Health Maintenance: ?Colon referred today ?Mammo 07/09/2023 ?DEXA ?PAP declined ?Tdap declined, Flu declined Specialists: Lung cancer screening program, referred today smoke 1/2 pack per day x 15 years, QUIT in 11/2023 Cards referred today GI referred today The patient is a 63-year-old female presenting with gastrointestinal bloating and difficulty breathing upon exertion. The patient reports worsening symptoms, noting the sensation of bloating and abdominal fullness, which has persisted for an unspecified duration. Notably, during the night, she experiences leakage, though she is uncertain if it is urine or another type of fluid. Additionally, the patient mentions a feeling of weakness in the abdomen and expresses concerns about possible urine blockage. She also describes episodes of shortness of breath, requiring her to pause to catch her breath after minor physical exertion, such as walking to her car or going from the car to her house. The patient denies chest pain but notes a sense of tightness, especially at night. She also has noticeable bilateral edema, which she describes as feeling tight, though not extreme in severity. There is no history of gastrointestinal bleeding, but significant abdominal tenderness was observed during the physical exam. The patient has not undergone recent gastrointestinal evaluations or completed previously ordered tests, which were postponed due to personal travel plans. Scheduled tests include a heart monitor and echocardiogram on January 31, with a lung cancer screening CT scan planned for February 21. There is pending healthcare coordination for a gastroenterology evaluation. The patient has not yet scheduled this appointment, contributing to ongoing concerns. Health Maintenance - Lung cancer screening CT scheduled for February 21. - Mammogram scheduled for July 10. - Continuing cessation of smoking. - Monitoring of alcohol intake discussed . Social History - Alcohol consumption: Reports drinking around a couple of beers every night, possibly more on some days. - Smoking: Previous smoker, currently ab stinent. smoking a half a pack per day for 15 years. Quit 11/2023 - Technology usage: Limited use of apps and technology for health management. - Recent diet: Reports consuming foods s uch as those from [employer]. Review of Systems - Gastrointestinal: Reports abdominal bl oating and fullness. - Urinary: Reports possible incontinence . - Respiratory: Reports shortness of quirino th on exertion. - General: Denies recent cough or chest pain. Exam Awake alert NAD scleras nonicteric bilat RRR LS CTAB Abd tender generally speaking w/o rebound or gaurding, normoactive bs x 4, negative peritoneal signs No edema BLE Patient was informed and verbally consented to the use of an ambient scribe for clinic note documentation during this visit. Discussion Notes During the visit, I discussed with the patient the significance of scheduling and completing necessary diagnostic tests, including those related to her cardiovascular and respiratory symptoms. We reviewed the potential for gastrointestinal distress and the importance of consulting gastroenterology for appropriate assessment and management. I also recommended that the patient proceed with scheduled diagnostic imaging and follow-up consultations, emphasizing adherence to health maintenance screenings, such as lung cancer screening and mammography, to ensure comprehensive care. Patient Instructions - Ensure completion all diagnostic exams - Follow through with all [facility] test appointments, including heart monitor and echocardiogram. - Schedule an appointment with gastroent erology for further evaluation. - Monitor alcohol consumption and contin ue to avoid smoking. - Timely follow-ups with primary care fo r assessing symptoms if there are new changes or worsening conditions. - Seek immediate assessment if there is any acute change, such as unmanageable shortness of breath or abdominal pain escalation. Plan CT of Abd/pelvis ordered along w/ additional labs. Offered and declined EKG to be done today. Check echocardiogram and Holter monitor. Check labs. Refer to cardiology. I sent message to [facility], rec'd message back today Per GI: Pt scheduled for earliest available screening appointment. Letter sent to advise pt of referral + appt. I would like to see her back in 4-6 weeks to follow up on the above. Sooner as needed. Edu on reasons to seek eval and tx in the ED. This note is constructed using voice recognition software. While every effort has been made to ensure accuracy in rice dryer mechanic, still errors may have been included Sometimes, these errors may affect the content or meaning of the given sentence . Total time spent caring for the patient today was 45 minutes. This includes time spent before the visit reviewing the chart, time spent during the visit, and time spent after the visit on documentation [facility] Medical History (Updated 01/28/24 @ 16:12 by Leigha Talamantes, ACCOUNTANCY PROFESSOR-) SOB (shortness of breath) Nicotine dependence, cigarettes, uncomplicated Surgical History (Updated 07/30/23 @ 15:13 by Rocio Loo PA-C) History of cervical spinal surgery Family History (Updated 12/24/23 @ 12:45 by Jacquie Currie MA) Brother Mental health disorder Cardiovascular disease Mother Hypertension Father Cardiovascular disease Other Cancer Social History (Updated 12/24/23 @ 12:46 by Jacquie Currie MA) Household Members: None Both parents involved: No Caregiver staying overnight: No Housing: House Are you a primary veterinarian laboratory animal care to a significant other at home: No Do you presently have visiting nurse or other home services: No 75 years or older and lives alone: No Alcohol intake: current Comment: 5 -6 drinks per night. Patient Tobacco Use Status: Former Tobacco user Cigarette Packs Per Day: 0.5 Cigarettes Per Day: 10 Years Smoked: 10 e-Cigarette/Vaping Use: Never Used Second Hand Smoke Exposure: No service: No Current occupational status: retired Cognitive needs: No Hearing needs: Yes Vision needs: Yes (wear glasses) Questionnaire PHQ-9 Over the last 2 weeks, how often have you been bothered by any of the following problems? 32135 - PHQ-9 Billing: Patient declined-do not bill Source: Developed by Drs. Artie Veloz, Felipa Vasqeuz, Pankaj Carey and colleagues, with an educational tucker from [employer]. Thrive Questionnaire Date Thrive assessed: 01/28/24 I am a: Patient What is your living situation today?: I choose not to answer this question Within the past 12 months, did the food you bought not last and you didn't have the money to get more?: I choose not to answer this question Within the past 12 months, did you worry whether your food would run out before you got money to buy more?: I choose not to answer this question Do you have trouble paying for medicines?: I choose not to answer this question Do you have trouble getting transportation to medical appointments?: I choose not to answer this question Do you have trouble paying your heating and electricity bill?: No Do you have trouble taking care of your child, family member or friend?: No Do you have trouble with day-to-day activities such as bathing, preparing meals, shopping, managing finances, etc.?: No Are you currently unemployed and looking for a job?: No Are you interested in more education?: No THRIVE Score: 0 PETRONA-7 AMB Questionnaire PETRONA-7 Date PETRONA - 7 assessed: 12/24/23 Source: Developed by Drs. Artie Veloz, Felipa Vasquez, Pankaj Carey and colleagues, with an educational tucker from [employer]. Physical exam (Primary Care) Vital Signs: Last Vital Signs Pulse 76 01/28/24 11:20 Resp 13 01/28/24 11:20 BP 116/64 01/28/24 11:20 Pulse Ox 96 01/28/24 11:20 Oxygen Delivery Method Room Air 01/28/24 11:20 BMI result Body Mass Index 25.3 Tobacco/Smoking Status: Tobacco use Status Tobacco use date assessed 12/24/23 01/28/24 11:16 Patient Tobacco Use Status Former Tobacco user 01/28/24 11:16 e-Cigarette/Vaping Use Never Used 01/28/24 11:16 Thrive Assessment: Date of Thrive Assessment Date Thrive assessed 01/28/24 01/28/24 11:16 Coding Level of Care Code Est Pt Level 5 (88279) Complex EM visit Add On G2211 Diagnoses Uncomplicated alcohol dependence F10.20 Substance use status: uncomplicated Abdominal bloating R14.0 Chronic diastolic congestive heart failure I50.32 Heart failure chronicity: chronic Heart failure type: diastolic Generalized abdominal pain R10.84 Abdominal location: generalized Palpitations R00.2 Former smoker Z87.891 DAMON (dyspnea on exertion) R06.09 Assessment & Plan Assessment & Plan (1) EtOH dependence: Code(s): F10.20 - Alcohol dependence, uncomplicated Category: Medical Qualifiers: Substance use status: uncomplicated Qualified Code(s): F10.20 - Alcohol dependence, uncomplicated (2) Abdominal bloating: Code(s): R14.0 - Abdominal distension (gaseous) Category: Medical (3) CHF (congestive heart failure): Code(s): I50.9 - Heart failure, unspecified Category: Medical Qualifiers: Heart failure chronicity: chronic Heart failure type: diastolic Qualified Code(s): I50.32 - Chronic diastolic (congestive) heart failure (4) Abdominal pain: Code(s): R10.9 - Unspecified abdominal pain Category: Medical Qualifiers: Abdominal location: generalized Qualified Code(s): R10.84 - Generalized abdominal pain (5) Palpitations: Code(s): R00.2 - Palpitations Category: Medical (6) Former smoker: Comment: 1/2 PPD x 15 years, quit 11/2023 Code(s): Z87.891 - Personal history of nicotine dependence Category: Social Hx (7) DAMON (dyspnea on exertion): Code(s): R06.09 - Other forms of dyspnea Category: Medical Plan . Orders: Orders Lipase Today F10.20 - Alcohol dependence, uncomplicated, R14.0 - Abdominal distension (gaseous) UA CC w/rflx Micro + Cult Today R14.0 - Abdominal distension (gaseous) CT abdomen pelvis wo/w IV con Today F10.20 - Alcohol dependence, uncomplicated, R10.9 - Unspecified abdominal pain, R14.0 - Abdominal distension (gaseous) Amylase Today F10.20 - Alcohol dependence, uncomplicated, R14.0 - Abdominal distension (gaseous) Hepatitis A,B,C Profile Today F10.20 - Alcohol dependence, uncomplicated, R14.0 - Abdominal distension (gaseous) NT-proBNP Today I50.32 - Chronic diastolic (congestive) heart failure
[2024-01-28 11:20] VITALS: BP 116/64; PULSE 76; RESP 13; O2SAT 96; BMI 25.3
== END 2024-01-28 12:08 | disposition home or self-care (01) ==
PROVIDERS: PCP Nurse Practitioner Family; Visit Provider Nurse Practitioner Family
DX: F10.20 Alcohol dependence, uncomplicated (principal); R14.0 Abdominal distension (gaseous); I50.32 Chronic diastolic (congestive) heart failure; R10.84 Generalized abdominal pain; R00.2 Palpitations; Z87.891 Personal history of nicotine dependence; R06.09 Other forms of dyspnea

== ENCOUNTER → 2024-01-28 11:12 | Outpatient (BNVA) | payer OTHER, SELFPAY | PROVIDERS: PCP Nurse Practitioner Family; Visit Provider Nurse Practitioner Family | DX: F10.20 Alcohol dependence, uncomplicated (principal); R14.0 Abdominal distension (gaseous); I50.32 Chronic diastolic (congestive) heart failure; R10.84 Generalized abdominal pain; R00.2 Palpitations; R06.09 Other forms of dyspnea; Z87.891 Personal history of nicotine dependence | CPT/HCPCS: 99212 ==

== ENCOUNTER → 2024-02-01 12:55 | Outpatient (REF) | payer OTHER, SELFPAY ==
--- NOTE | 2024-02-01 12:58 | CA_ITS ---
Transthoracic Echocardiogram Patient (Last, First, Middle): Ailyn Mratinez, Gender: Female Date of : 1960 Age: 63 Procedure Date: 02/01/2024 Procedure Type: Transthoracic Echocardiogram Location: OP Height: 167. cm Weight: 71.22 kg BSA: 1.80 m2 Heart Rate: 93 bpm BP: 122 / 80 mmHg Unit Aid: LAVERNE Referring MD: Leigha Talamantes [facility] Clinical Trial Specialist: Twan Melo MD Symptoms: R00.2 - Palpitations Study Quality: Adequate ECG Rhythm: Tachycardia Conclusions: - 1. Moderately dilated left ventricle with severely reduced LV ejection fraction of 10-15%, with pseudonormal filling pattern 2. Moderately dilated left atrium 3. Moderate mitral regurgitation due to LV pathology 4. Normal RV systolic pressure 5. No gross pericardial effusion Findings Left Ventricle Moderately increased left ventricular cavity size. There is normal left ventricular wall thickness. The left ventricular systolic function is severely decreased. The visually estimated ejection fraction is between 10 15%. Spectral Doppler is indicative of a pseudonormal filling pattern. Right Ventricle Moderately increased right ventricular cavity size. There is normal right ventricular systolic function. Atria The left atrium is moderately dilated. There is no evidence of interatrial shunt. The right atrium is mildly dilated. Aortic Valve Normal aortic valve structure and function. There is no aortic valve stenosis. There is no aortic valve regurgitation. Mitral Valve There is mild anterior and posterior mitral leaflet thickening. There is moderate mitral valve regurgitation. There is no mitral valve stenosis. Pulmonic Valve The pulmonic valve is likely normal. Tricuspid Valve Normal tricuspid valve structure. There is mild tricuspid valve regurgitation. The right ventricular systolic pressure is normal. The right ventricular systolic pressure is 20 mmHg. Normal right atrial pressure. There is no evidence of pulmonary hypertension. Great Vessels All visible segments of the aorta are normal in size. The pulmonary artery was not well visualized. Venous The inferior vena cava is normal in size and collapses greater than 50% with inspiration. Pericardium/Pleural There is no evidence of pericardial effusion. Prior Study Comparison No prior study available for comparison. Findings conveyed to Ms Lobato Measurements 2D Linear Measurements IVSd: 0.78 0.6-0.9/0.6-1.0 cm LVIDd: 6.63 3.9-5.3/4.2-5.9 cm LVIDd Index: 3.68 2.4-3.2/2.2-3.1 cm/m2 LVIDs: 5.88 2.0-3.6 cm LVPWd: 1.36 0.7-1.1 cm LA Diam: 4.60 2.7-3.8/3.0-4.0 cm LAIDs Index: 2.56 1.5-2.3 cm/m2 LV Mass: 397.46 67-162/88-224 g LV Mass Index: 220.81 43-95/49-115 g/m2 LVOT Diam: 1.80 3.0+(-)1.3 cm 2D Systolic Function EF 4C: 10.60 >55% EF 2C: 9.94 >55% EF BiP: 11.50 >55% Mitral Valve MV VTI: 0.25 MV Pk Rusty: 1.48 MV Mn Rusty: 0.78 MV Pk Grad: 9.00 MV Mn Grad: 3.00 MV Pk E: 1.29 MV Decel Time: 173.00 E'Lateral: 11.70 E'Medial: 5.33 E/E' Med: 24.20 E/E' Lat: 11.00 PHT: 51.00 MVA PHT: 4.31 MVA Continuity: 1.03 Decel Laurel: 7.45 MR Vol - PW Dopp: 29.04 MR VTI: 1.32 MR ERO: 22.00 MR Alias Rusty: 0.39 MR RAD: 0.60 Aortic Valve AoV Pk Rusty: 0.99 AoV Mn Rusty: 0.69 AoV VTI: 0.17 AoV Pk Grad: 4.00 Aov Mn Grad: 2.00 THUY Cont.VTI: 1.54 LVOT LVOT Pk Rusty: 0.66 LVOT Mn Rusty: 0.43 LVOT VTI: 0.10 LVOT Pk Grad: 2.00 LVOT Mn Grad: 1.00 LVOT Diam: 1.80 LVOT Area: 2.54 Diastolic Function MV Pk E: 1.29 E'Medial: 5.33 E/E' Med: 24.20 E' Laterial: 11.70 E/E' Lat: 11.00 Right Ventricle TAPSE (mm): 25.30 TVS' Rusty: 7.83 Tricuspid Valve TR Pk Rusty: 2.05 TR Pk Grad: 17.00 RA Press: 3.00 RVSP: 20.00 Great Vessels Aorta Sinus of Valsalva: 3.00 2.0-3.5 cm Ao Asc: 3.20 2.1-3.4 cm Pulmonary Valve PV Pk Rusty: 0.80 Peak PV Grad: 3.00 Updated in Other Vendor System with Status of Final Twan Melo MD electronically signed on 02/01/2024 2:15:57 PM with status of Final
--- NOTE | 2024-02-01 14:35 | HO.CARDTECH ---
01/31. Patient had an Echocardiogram. Contacted Dr. Melo about patient's low EF found on Echo. Per Dr. Melo patient was let go home with a note to go to ED if get symptomatic at rest and needed to be seen by hammer heater EDWARD. Contacted Cardiology to schedule a hammer heater visit for the patient, but there was no openings until April.
== END ==
LOC: HO.CARD 12:55
PROVIDERS: PCP Nurse Practitioner Family; Visit Provider Nurse Practitioner Family
DX: R00.2 Palpitations (principal); I50.9 Heart failure, unspecified
CPT/HCPCS: 93242; 93306

== ENCOUNTER → 2024-02-01 12:58 | Outpatient (BNV) | payer OTHER, SELFPAY | PROVIDERS: PCP Nurse Practitioner Family; Visit Provider Internal Medicine Cardiovascular Disease | DX: I50.20 Unspecified systolic (congestive) heart failure (principal); I34.0 Nonrheumatic mitral (valve) insufficiency; I36.1 Nonrheumatic tricuspid (valve) insufficiency | CPT/HCPCS: 93306 ==

== ENCOUNTER 2024-02-04 14:17 | Outpatient (AMB) | payer OTHER, SELFPAY ==
[2024-02-04 14:57] VITALS: BP 130/60; PULSE 88; BMI 25.4
--- NOTE | 2024-02-04 14:57 | A.OFFVIS_ITS ---
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 She recently had an echocardiogram done for dyspnea on exertion which showed severe LV dysfunction. She has left bundle-branch block. She is a former smoker and quit smoking in October but was smoking for approximately 50 years. She also has been a drinker and drinks 5 beers every day. She is saying she has been short of breath over the last year but more so over the last few months. No orthopnea or PND but mostly dyspnea on exertion. She also gets some chest heaviness with activities. She is saying that she had heart failure in the past and had some testing done at [facility]. We will review her records at [facility]. Currently not on any medications. Has not been following with any doctors for long time because she did not have any insurance. [facility] Medical History (Updated 02/04/24 @ 16:05 by Levar Kruger MD) SOB (shortness of breath) Nicotine dependence, cigarettes, uncomplicated Surgical History History of cervical spinal surgery Family History Brother Mental health disorder Cardiovascular disease Mother Hypertension Father Cardiovascular disease Other Cancer Social History Household Members: None Both parents involved: No Caregiver staying overnight: No Housing: House Are you a primary client care specialist to a significant other at home: No Do you presently have visiting nurse or other home services: No 75 years or older and lives alone: No Alcohol intake: current Comment: 5 -6 drinks per night. Patient Tobacco Use Status: Former Tobacco user Cigarette Packs Per Day: 0.5 Cigarettes Per Day: 10 Years Smoked: 10 e-Cigarette/Vaping Use: Never Used Second Hand Smoke Exposure: No service: No Current occupational status: retired Cognitive needs: No Hearing needs: Yes Vision needs: Yes (wear glasses) Review of Systems Const Denies chills, Denies fatigue, Denies fever(s), Denies frequent falls, Denies weakness, Denies weight gain and Denies weight loss ENT Denies dizziness Card Denies chest pain, Denies leg edema, Denies lightheadedness, Denies palpitations, Denies dyspnea, Denies dyspnea on exertion and Denies orthopnea Resp Denies cough, Denies dyspnea and Denies dyspnea on exertion GI Denies bloating and Denies change in bowel habits Musc Denies muscle weakness, Denies numbness and Denies tingling Neuro Denies dizziness, Denies frequent falls, Denies numbness, Denies tingling and Denies weakness Endo Denies fatigue and Denies palpitations Physical Exam Vital Signs: Last Vital Signs Pulse 88 02/04/24 14:57 BP 130/60 02/04/24 14:57 BMI result Body Mass Index 25.4 GENERAL APPEARANCE: in no acute distress. NECK: no carotid bruit, no jugular venous distention. SKIN: no suspicious lesions, warm and dry. HEART: no murmurs, regular rate and rhythm. LUNGS: clear to auscultation bilaterally. ABDOMEN: soft, nontender. EXTREMITIES: no edema. PERIPHERAL PULSES: equal. NEUROLOGIC: No gross deficits, AAO X 3 Office Procedures EKG Details: Normal sinus rhythm 88 beats per minute, normal axis, left bundle-branch block with QRS duration of 160 milliseconds, QTC 520 milliseconds. [id number], Complete Assessment & Plan Assessment & Plan (1) Left bundle branch block: Comment: Will order echocardiogram. Will refer to cardiology. Code(s): I44.7 - Left bundle-branch block, unspecified Category: Medical (2) CHF (congestive heart failure): Code(s): I50.9 - Heart failure, unspecified Category: Medical Qualifiers: Heart failure type: diastolic Heart failure chronicity: chronic Qualified Code(s): I50.32 - Chronic diastolic (congestive) heart failure (3) Cardiomyopathy: Code(s): I42.9 - Cardiomyopathy, unspecified Category: Medical Plan [age] year female with background of tobacco abuse and alcohol use presenting for shortness of breath ongoing over the last year but more progressive over the last few months. Echocardiography has shown severe LV dysfunction. Etiology include ischemic heart disease, alcohol use and left bundle-branch block. Starting her on losartan 25 mg and spironolactone 25 mg daily. We will bring her back in 2 weeks to reassess her and adjust medicines. I have discussed with her that once she stabilizes further we will arrange diagnostic angiography for her. She needs to completely abstain from alcohol and she understands that. We will arrange PFTs to understand if she has any significant pulmonary disease playing any role in the dyspnea. Follow-up in 2 weeks. She will do blood workup before she comes to assess potassium level with spironolactone and losartan. Thank you for allowing me to participate in the care of your patient. Please feel free to contact me if you have any questions. Orders: Orders B Type Natriuretic Peptide Today Z87.891 - Personal history of nicotine dependence PFT pulmonary function test Today Z87.891 - Personal history of nicotine dependence Basic Metabolic Panel Today Z87.891 - Personal history of nicotine dependence Medications: New spironolactone 25 mg PO DAILY 90 tabs 3RF losartan 25 mg PO DAILY 60 tabs 3RF Coding Level of Care Code New Pt Level 5 (73294) Diagnoses Left bundle branch block I44.7 Chronic diastolic congestive heart failure I50.32 Heart failure type: diastolic Heart failure chronicity: chronic Cardiomyopathy I42.9 CPT Codes EKG - CPT: [id number], Complete ([id number])
== END 2024-02-04 15:34 | disposition home or self-care (01) ==
PROVIDERS: PCP Nurse Practitioner Family; Visit Provider Internal Medicine Cardiovascular Disease
DX: I44.7 Left bundle-branch block, unspecified (principal); I50.32 Chronic diastolic (congestive) heart failure; I42.9 Cardiomyopathy, unspecified
CPT/HCPCS: 93010; 99204

== ENCOUNTER → 2024-02-04 14:17 | Outpatient (BNVA) | payer OTHER, SELFPAY | PROVIDERS: PCP Nurse Practitioner Family; Visit Provider Internal Medicine Cardiovascular Disease | DX: I44.7 Left bundle-branch block, unspecified (principal); I42.9 Cardiomyopathy, unspecified; I50.32 Chronic diastolic (congestive) heart failure; Z87.891 Personal history of nicotine dependence | CPT/HCPCS: 93005; 99202 ==

== ENCOUNTER 2024-02-09 14:02 | Outpatient (REF) | payer OTHER, SELFPAY ==
[2024-02-09 10:23] VITALS: PULSE 88; O2SAT 98
--- NOTE | 2024-02-09 13:30 | PFT_ITS ---
Flows: FEV1: 81 % of predicted at 2.04 L FVC: 86 % of predicted at 2.80 L FEV1/FVC: 73 % Bronchodilator response: Present in small to medium airways only. Volumes: Total lung capacity: 80 % of predicted at 4.33 L Residual volume: 73 % of predicted at 1.43 L Slow vital capacity: 84 % of predicted at 2.90 L Expiratory reserve volume: 96 % of predicted at 0.82 L Diffusion capacity: Mildly decreased, corrects to normal after adjustment for alveolar ventilation. Impression: Reversible moderate obstructive ventilatory defect with bronchodilator response present in small to medium airways only. Decreased diffusion capacity suggests emphysema. MTDD
== END 2024-02-09 14:03 | disposition home or self-care (01) ==
LOC: HO.RESP 14:02
PROVIDERS: PCP Nurse Practitioner Family; Visit Provider Internal Medicine Cardiovascular Disease
DX: Z87.891 Personal history of nicotine dependence (principal)
CPT/HCPCS: 94010; 94640; 94727; 94729

== ENCOUNTER 2024-02-21 12:55 | Outpatient (REF) | payer OTHER, SELFPAY | END 2024-02-21 12:56 | disposition home or self-care (01) | LOC: HO.WFDLDS 12:55 | PROVIDERS: Referring Provider Internal Medicine Cardiovascular Disease; Visit Provider Nurse Practitioner Family | DX: Z13.89 Encounter for screening for other disorder (principal) ==

== ENCOUNTER 2024-02-25 14:04 | Outpatient (AMB) | payer OTHER, SELFPAY ==
[2024-02-25 14:35] VITALS: BP 110/62; PULSE 64; BMI 24.3
--- NOTE | 2024-02-25 14:35 | A.OFFVIS_ITS ---
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 She recently had an echocardiogram done for dyspnea on exertion which showed severe LV dysfunction. She has left bundle-branch block. She is a former smoker and quit smoking in October but was smoking for approximately 50 years. She also has been a drinker and drinks 5 beers every day. She is saying she has been short of breath over the last year but more so over the last few months. No orthopnea or PND but mostly dyspnea on exertion. She also gets some chest heaviness with activities. She is saying that she had heart failure in the past and had some testing done at [facility]. We will review her records at [facility]. Currently not on any medications. Has not been following with any doctors for long time because she did not have any insurance. 02/25/24: here for f/u. She was started on losartan and spironolactone. She has tolerated it well. she continues to have DAMON. No CP. [facility] Medical History (Updated 02/21/24 @ 12:37 by Rocio Loo PA-C) Personal history of nicotine dependence SOB (shortness of breath) Surgical History History of cervical spinal surgery Family History Brother Mental health disorder Cardiovascular disease Mother Hypertension Father Cardiovascular disease Other Cancer Social History Household Members: None Housing: House Are you a primary family day care provider to a significant other at home: No Do you presently have visiting nurse or other home services: No Alcohol intake: current Comment: 5 -6 drinks per night. Patient Tobacco Use Status: Former Tobacco user Cigarette Packs Per Day: 0.5 Cigarettes Per Day: 10 Years Smoked: 10 e-Cigarette/Vaping Use: Never Used Second Hand Smoke Exposure: No service: No Current occupational status: retired Cognitive needs: No Hearing needs: Yes Vision needs: Yes (wear glasses) Review of Systems Const Denies chills, Denies fatigue, Denies fever(s), Denies frequent falls, Denies weakness, Denies weight gain and Denies weight loss ENT Denies dizziness Card Denies chest pain, Denies leg edema, Denies lightheadedness, Denies palpitations, Denies dyspnea and Denies dyspnea on exertion Resp Denies cough, Denies dyspnea and Denies dyspnea on exertion GI Denies hematochezia Musc Denies abnormal gait, Denies muscle weakness, Denies numbness, Denies radiating pain into limb and Denies tingling Neuro Denies abnormal gait, Denies dizziness, Denies frequent falls, Denies numbness, Denies tingling and Denies weakness Endo Denies fatigue and Denies palpitations Physical Exam Vital Signs: Last Vital Signs Pulse 64 02/25/24 14:35 BP 110/62 02/25/24 14:35 BMI result Body Mass Index 24.3 GENERAL APPEARANCE: in no acute distress. NECK: no carotid bruit, no jugular venous distention. SKIN: no suspicious lesions, warm and dry. HEART: no murmurs, regular rate and rhythm. LUNGS: clear to auscultation bilaterally. ABDOMEN: soft, nontender. EXTREMITIES: no edema. PERIPHERAL PULSES: equal. NEUROLOGIC: No gross deficits, AAO X 3 Assessment & Plan Assessment & Plan (1) Left bundle branch block: Comment: Will order echocardiogram. Will refer to cardiology. Code(s): I44.7 - Left bundle-branch block, unspecified Category: Medical (2) CHF (congestive heart failure): Code(s): I50.9 - Heart failure, unspecified Category: Medical Qualifiers: Heart failure type: diastolic Heart failure chronicity: chronic Qualified Code(s): I50.32 - Chronic diastolic (congestive) heart failure (3) Cardiomyopathy: Code(s): I42.9 - Cardiomyopathy, unspecified Category: Medical Plan [age] year female with background of tobacco abuse and alcohol use presenting for shortness of breath ongoing over the last year but more progressive over the last few months. Echocardiography has shown severe LV dysfunction. Etiology include ischemic heart disease, alcohol use and left bundle-branch block. She will check if Entresto is affordable. If yes then we will transition her to Entresto otherwise ARB. c/w spironolactone. We will arrange a diagnostic cath for her to understand etiology of cardiomyopathy. Added baby aspirin. She will get precath labs. Thank you for allowing me to participate in the care of your patient. Please feel free to contact me if you have any questions. Orders: Orders Cardiac Cath LT Diagnostic 02/25/24 I42.9 - Cardiomyopathy, unspecified Complete Blood Count no Diff 02/25/24 I42.9 - Cardiomyopathy, unspecified Prothrombin Time INR 02/25/24 I42.9 - Cardiomyopathy, unspecified Medications: New sacubitril-valsartan 49-51 mg (Entresto) 1 tab PO BID 60 tabs 3RF aspirin (Adult Aspirin Regimen) 81 mg PO DAILY 120 tabs 4RF Discontinued losartan Discontinued Reason: Doctor's Order 25 mg PO DAILY 60 tabs 3RF Coding Level of Care Code Est Pt Level 5 (99638) Diagnoses Left bundle branch block I44.7 Chronic diastolic congestive heart failure I50.32 Heart failure type: diastolic Heart failure chronicity: chronic Cardiomyopathy I42.9
== END 2024-02-25 15:27 | disposition home or self-care (01) ==
PROVIDERS: PCP Nurse Practitioner Family; Visit Provider Internal Medicine Cardiovascular Disease
DX: I44.7 Left bundle-branch block, unspecified (principal); I50.32 Chronic diastolic (congestive) heart failure; I42.9 Cardiomyopathy, unspecified
CPT/HCPCS: 99215

== ENCOUNTER → 2024-02-25 14:04 | Outpatient (BNVA) | payer OTHER, SELFPAY | PROVIDERS: PCP Nurse Practitioner Family; Visit Provider Internal Medicine Cardiovascular Disease | DX: I44.7 Left bundle-branch block, unspecified (principal); I50.32 Chronic diastolic (congestive) heart failure; I42.9 Cardiomyopathy, unspecified | CPT/HCPCS: 99212 ==

== ENCOUNTER 2024-03-17 11:49 | Outpatient (REF) | payer OTHER, SELFPAY ==
[2024-03-17 12:39] LABS: Hematocrit 46.1 % (37.0-47.0); Hemoglobin 15.1 g/dl (12.0-16.0); Mean Corpuscular HGB Conc 32.8 g/dl (31.0-35.0); Mean Corpuscular Hemoglobin 31.9 pg (27.0-33.0); Mean Corpuscular Volume 97.5 fL (80.0-98.0); Mean Platelet Volume 9.6 fL (9.4-12.3); Platelet Count 279 X10*3/uL (160-400); Red Blood Count 4.73 X10*6/uL (4.20-5.50); Red Cell Distribution Width 12.8 % (11.0-16.0); White Blood Count 6.5 X10*3/uL (4.8-10.8)
[2024-03-17 12:46] LABS: INTERNATIONAL NORM RATIO 0.9 (0.9-1.1); Prothrombin Time 10.4 SEC (10.9-12.4)
[2024-03-17 13:09] LABS: Anion Gap 15 (12-20); Blood Urea Nitrogen 11 mg/dL (9-16); Calcium 9.6 mg/dL (8.4-10.2); Carbon Dioxide 24 mmol/L (22-29); Chloride 106 mmol/L (96-108); Estimated Glomerular Filt Rate > 60; Glucose Random 110 mg/dL (60-115); Sodium 140 mmol/L (135-145)
[2024-03-17 13:17] LABS: B Type Natriuretic Peptide 1351 pg/mL (<100)
== END 2024-03-17 11:50 | disposition home or self-care (01) ==
LOC: HO.LAB 11:49
PROVIDERS: Absent Provider Internal Medicine Cardiovascular Disease; PCP Nurse Practitioner Family; Visit Provider Internal Medicine Cardiovascular Disease
DX: Z87.891 Personal history of nicotine dependence (principal); I42.9 Cardiomyopathy, unspecified
CPT/HCPCS: 36415; 80048; 83880; 85027; 85610

== ENCOUNTER 2024-03-21 11:02 | Outpatient (AMB) | payer OTHER, SELFPAY ==
--- NOTE | 2024-03-21 08:02 | MHC.OFFVIS ---
Intake Visit Reasons: Nicotine dependence, cigarettes Allergies oxycodone [Percocet] Adverse Reaction (Unknown, Verified 01/28/24 11:20) N/V HPI HPI Nicotine dependence, cigarettes: Details: Initial visit for this 63yo smoker with a 30PYH. Patient started smoking at age 14 for 30 years at 1ppd. She quit over the years for a period of ~15 years Recently quit. 11/16/2023. . Denies marijuana use. Denies second hand smoke exposure. Denies exposure to chemicals or substances like asbestos. . Denies known family history of lung cancer. Denies personal history of cancers. Denies chest CT in last year. . Denies recent travel outside the [place]. Denies recent respiratory illness or recent hospitalization for respiratory issues. Denies testing positive for COVID. Admits receiving COVID Vaccine. . Denies fever, chills, new/worsening cough, hemoptysis, hoarseness or dysphagia. Denies significant chest pain, significant dyspnea or unintentional weight loss. Patient Lung Cancer Screening Questionnaire reviewed with patient by provider. . Shared Decision Making Completed. Patient meets criteria. Discussed in detail with patient, the risk vs benefit of LDCT screening. Patient consents to proceed with scan. Discussed smoking cessation. [facility] Medical History (Updated 03/21/24 @ 11:17 by Rocio Loo PA-C) Personal history of nicotine dependence SOB (shortness of breath) Surgical History History of cervical spinal surgery Family History Brother Mental health disorder Cardiovascular disease Mother Hypertension Father Cardiovascular disease Other Cancer Social History (Updated 03/21/24 @ 11:19 by Rocio Loo PA-C) Household Members: None Both parents involved: No Caregiver staying overnight: No Housing: House Are you a primary school child care attendant to a significant other at home: No Do you presently have visiting nurse or other home services: No 75 years or older and lives alone: No Alcohol intake: current Comment: 5 -6 drinks per night. Patient Tobacco Use Status: Former Tobacco user Years Smoked: (onset 14yo, 1ppd x 30yrs, 30pyh - quit 10/2023) e-Cigarette/Vaping Use: Never Used Second Hand Smoke Exposure: No service: No Current occupational status: retired Cognitive needs: No Hearing needs: Yes Vision needs: Yes (wear glasses) Assessment & Plan Assessment & Plan (1) Personal history of nicotine dependence: Comment: (onset 14yo, 1ppd x 30yrs, 30pyh - quit 10/2023) Code(s): Z87.891 - Personal history of nicotine dependence Category: Medical Plan: - SDM visit completed today in office. - Patient meets criteria for LDCT for lung cancer screening purposes and is asymptomatic. - Smoking cessation counseling offered. Patients can always call [phone]. - Will arrange for a LDCT scan of the chest for screening purposes at [facility]. - Risks, benefits, and alternatives were discussed in detail and the patient agrees to proceed. - Risks discussed include but are not limited to: radiation exposure, anxiety during testing and while awaiting results, false negatives, false positives and possibility of additional intervention such as further imaging or surgical procedures for benign disease. - Benefits are obviously detection of lung cancer at an early stage which can lead to improved outcomes. - Discussed the importance of screening program compliance with adherence to yearly LDCT scan as scheduled - or sooner interval scans for personalized screening regimen. - Discussed follow up plan. Our office will send a letter discussing results and if needed set up phone call and office visit based on CT findings. - Patient educated on results categorization and the management decisions for suspicious findings potentially found on the screening LDCT scan. Any patient with a Lung RADS score of 3 or 4 will be reviewed by a multidisciplinary team at [facility] to form a plan of action in regards to scan findings. - If further work up is warranted for a suspicious lung finding this will be followed by the Lung Cancer Screening program in conjunction with the Thoracic Surgery Department at [facility]. - A copy of the office note and LDCT will be sent to the patient's PCP - as well as documentation on any associated further plans of care. - Incidental findings on LDCT are the PCP's responsibility. These findings are indicated with an S finding on the LDCT Assessment. A note discussing the findings will be sent to the PCP who is then responsible for further management. - All questions answered.? Coding Level of Care Code Lung Cancer Screening G0296 Diagnoses Personal history of nicotine dependence Z87.891
== END 2024-03-21 11:34 | disposition home or self-care (01) ==
PROVIDERS: PCP Nurse Practitioner Family; Visit Provider Physician Assistant Medical
DX: Z87.891 Personal history of nicotine dependence (principal)
CPT/HCPCS: G0296

== ENCOUNTER 2024-03-21 11:23 | Outpatient (REF) | payer OTHER, SELFPAY ==
--- NOTE | ~2024-03-21 | CT_ITS ---
CLINICAL HISTORY: NICOTINE DEPENDENCE CT lung cancer screening (LDCT) Comparison: None Technique: Axial CT images of the chest using low-dose technique. Referring provider counseled the patient on shared decision-making for LDCT screening. Additional counseling was provided on smoking cessation. Effective radiation dose total: DLP 86.7 mGycm, CTDIvol 2.6 mGy. Findings: No suspicious pulmonary nodules identified. There are few tiny juxtapleural pulmonary nodules measuring 1-2 mm in size. Partially calcified granuloma in the right lower lobe measures 3 mm in size. Mild emphysema. No focal areas of consolidation. Bilateral apical pleural/parenchymal scarring. No pleural effusion or pneumothorax. No enlarged lymph nodes. Vascular calcification of the coronary arteries and thoracic aorta. Moderate left ventricular dilation. There is dense vascular calcification of the splenic artery. No free fluid or free air within the upper abdomen. Small fluid attenuation structure is seen to the right of the aorta at the level of the aortic hiatus measuring 10 x 7 mm in size. No acute bony abnormality. Impression: Mild emphysematous changes without suspicious pulmonary nodule. Multifocal vasculopathy. Small cyst adjacent to the aorta at the level of the aortic hiatus. 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 Continued attention on follow up lung cancer screening chest CT suggested. Category 2: Benign appearance or behavior. Continued annual lung cancer screening chest CT suggested. Category 1: Normal; continue annual screening Category 2: Benign appearance or behavior, continue annual screening Category 3: Probably benign, [address] recommended Category 4A: Suspicious, [address] recommended; may consider PET/CT Category 4B: Suspicious, Additional diagnostics and/or tissue sampling recommended Category 4X: Suspicious, Additional diagnostics and/or tissue sampling recommended Category 0: Recalls (incomplete screen due to Incomplete coverage, Noise, Respiratory motion, Expiration, Obscured by acute abnormality) This document has been electronically signed by: Red Kimbrough MD on 03/21/2024 17:08:35
== END 2024-03-21 11:24 | disposition home or self-care (01) ==
LOC: HO.CT 11:23
PROVIDERS: PCP Nurse Practitioner Family; Visit Provider Physician Assistant Medical
DX: Z12.2 Encounter for screening for malignant neoplasm of respiratory organs (principal); F17.210 Nicotine dependence, cigarettes, uncomplicated
CPT/HCPCS: 71271; G0296

== ENCOUNTER → 2024-03-21 11:24 | Outpatient (BNV) | payer OTHER, SELFPAY | PROVIDERS: PCP Nurse Practitioner Family; Visit Provider Radiology Diagnostic Radiology | DX: Z87.891 Personal history of nicotine dependence (principal) | CPT/HCPCS: 71271 ==

== ENCOUNTER → 2024-04-01 23:59 | Outpatient (BNV) | payer OTHER, SELFPAY | PROVIDERS: PCP Nurse Practitioner Family; Visit Provider Internal Medicine Cardiovascular Disease | DX: I50.20 Unspecified systolic (congestive) heart failure (principal); I20.89 Other forms of angina pectoris; I42.9 Cardiomyopathy, unspecified | CPT/HCPCS: 92928; 92929; 92972; 93458; 99152 ==

== ENCOUNTER 2024-04-15 12:58 | Outpatient (AMB) | payer OTHER, SELFPAY ==
[2024-04-15 13:15] VITALS: BP 116/64; PULSE 78; BMI 24.1
--- NOTE | 2024-04-15 13:15 | A.OFFVIS_ITS ---
Vital Signs 04/15/24 13:15 Height 5 ft 6 in Weight 149 lb 7.574 oz BMI 24.1 BP 116/64 Blood Pressure Location Lt brachial Position Sitting Pulse 78 Pulse Source Palpation Intake Visit Reasons: 2wk f/up after Cath 04/01 Hop Picker Required: No Accompanied by: Self / Same As Patient Allergies oxycodone [Percocet] Adverse Reaction (Unknown, Verified 01/28/24 11:20) N/V Medication List - Last Reconciled 04/15/24 by Shiva Phillips NP aspirin (Adult Aspirin Regimen) 81 mg PO DAILY sacubitril-valsartan 49-51 mg (Entresto) 1 tab PO BID spironolactone 25 mg PO DAILY ticagrelor (Brilinta) 90 mg PO BID HPI Comments Details: This is a 63-year-old female patient presenting for a follow-up visit after cardiac catheterization. She has a history of severe left ventricular dysfunction with left bundle branch block and coronary artery disease, having undergone drug-eluting stent placement to the LAD and RCA with Dr. Kruger on 04/01/2024. The patient reports significant improvement in her shortness of breath compared to before the procedure, though she still experiences shortness of breath with walking short distances. She notes that her symptoms were worse immediately following the procedure but has been improving slowly since then. Patient was switched from Brilinta to Plavix due to the ongoing shortness of breath. Patient now states that her shortness of breath is better. Patient is denying any associated symptoms including exertional chest pain, palpitations, dizziness, fatigue, orthopnea, PND, leg edema, presyncope, or syncope. She states that she has been compliant with all her medications. Additionally, the patient reports quitting smoking as of 01/09/2024, for which she was commended. She also mentions that she has reduce her drinking [address] [facility] Medical History Personal history of nicotine dependence SOB (shortness of breath) Surgical History History of cervical spinal surgery Family History Brother Mental health disorder Cardiovascular disease Mother Hypertension Father Cardiovascular disease Other Cancer Social History Household Members: None Both parents involved: No Caregiver staying overnight: No Housing: House Are you a primary childcare administrator to a significant other at home: No Do you presently have visiting nurse or other home services: No 75 years or older and lives alone: No Alcohol intake: current Comment: 1-2 drinks per night. Patient Tobacco Use Status: Former Tobacco user Years Smoked: (onset 14yo, 1ppd x 30yrs, 30pyh - quit 10/2023) e-Cigarette/Vaping Use: Never Used Second Hand Smoke Exposure: No service: No Current occupational status: retired Cognitive needs: No Hearing needs: Yes Vision needs: Yes (wear glasses) Review of Systems Const Denies chills, Reports fatigue, Denies fever(s), Denies weight gain and Denies weight loss ENT Denies dizziness Card Denies chest pain, Denies leg edema, Denies lightheadedness, Denies palpitations, Reports dyspnea on exertion, Denies orthopnea and Denies other Resp Denies cough and Reports dyspnea on exertion GI Denies hematochezia and Denies change in stool character Musc Denies abnormal gait, Denies muscle weakness, Denies numbness, Denies radiating pain into limb and Denies tingling Neuro Denies abnormal gait, Denies dizziness, Denies numbness and Denies tingling Endo Reports fatigue and Denies palpitations Physical Exam Vital Signs: Last Vital Signs Pulse 78 04/15/24 13:15 BP 116/64 04/15/24 13:15 BMI result Body Mass Index 24.1 Const General: cooperative, healthy appearing, comfortable and no acute distress Orientation/consciousness: patient oriented x3 HEENT Head: Yes normal to inspection Neck Neck: Yes normal visual inspection, Yes trachea midline and Yes supple Chest Chest palpation & inspection: normal inspection of the chest Resp Effort & Inspection: normal respiratory effort Auscultation: clear to auscultation bilaterally, no crackles, no rales, no rhonchi and no wheezes Cardio Jugular venous distension: no JVD Palpation: normal PMI Rate: regular rate Rhythm: regular rhythm Heart sounds: S1 normal heart sound present, S2 normal heart sound present, no click, no gallops, no murmurs and no rubs Peripheral pulses: Peripheral pulses 2+ throughout GI Inspection: Yes normal to inspection Palpation (GI): Soft to palpation Auscultation: normal bowel sounds Skin General skin exam: no rashes or lesions noted Neuro General: patient oriented x3 Extrem General: Yes normal to inspection, No no pedal edema and No calf tenderness Psych Appearance: grossly normal Mental Status: mental status grossly normal Speech and movement: Normal speech and movement present Assessment & Plan Assessment & Plan (1) S/P cardiac catheterization: Code(s): Z98.890 - Other specified postprocedural states Category: Surgical Plan: 04/01/2024-patient underwent cardiac catheterization showing severe proximal LAD stenosis, 85%, severe proximal to mid RCA stenosis, 90%. Status post drug- eluting stent to LAD and RCA. Continue lifelong aspirin therapy. Patient was previously on Brilinta and since she was experiencing shortness of breath it was changed over to Plavix. Continue uninterrupted Plavix therapy for at least 12 months. Continue Entresto and spironolactone. No recent LDL. Patient will repeat lipid panels. Ideally goal of less than 70 for her. Patient to start cardiac rehab in April. (2) CAD (coronary artery disease): Code(s): I25.10 - Atherosclerotic heart disease of [place] coronary artery without angina pectoris Category: Medical Plan: As above (3) Cardiomyopathy: Code(s): I42.9 - Cardiomyopathy, unspecified Category: Medical Plan: 02/01/2024- echo study showed severely reduced LV EF of 10-15% with pseudonormal filling pattern, with moderately dilated LV, LA, moderate mitral regurgitation. We will repeat echo before her next visit. Continue with the current regimen. (4) Left bundle branch block: Code(s): I44.7 - Left bundle-branch block, unspecified Category: Medical Plan: As above (5) DAMON (dyspnea on exertion): Code(s): R06.09 - Other forms of dyspnea Category: Medical Plan: As above. Patient requesting a temporary handicap parking placard due to difficulty walking long distances. Patient reports that she has to park far from the entrance went grocery shopping and experiences significant shortness of breath with this. Paperwork for temporary placard has been filled out and patient will pick this up. Patient to follow-up in [address] Kruger. We will repeat an echo before that. In the interim, patient call the office with any concerns or change in symptoms. This note was generated using voice recognition software. While every effort has been made to ensure accuracy and proper residential collections, there may be occasional errors that could affect the content or meaning of the described symptoms. Orders: Orders Lipid Panel Today I25.10 - Atherosclerotic heart disease of [place] coronary artery without angina pectoris CA echo transthoracic complete 3 Months I42.9 - Cardiomyopathy, unspecified Coding Level of Care Code Est Pt Level 4 (46653) Diagnoses S/P cardiac catheterization Z98.890 CAD (coronary artery disease) I25.10 Cardiomyopathy I42.9 Left bundle branch block I44.7 DAMON (dyspnea on exertion) R06.09 Time Spent (min) 33 Comment Time spent in reviewing the chart, test results, assessment, counseling and documentation.
== END 2024-04-15 13:58 | disposition home or self-care (01) ==
PROVIDERS: PCP Nurse Practitioner Family
DX: Z98.890 Other specified postprocedural states (principal); I25.10 Atherosclerotic heart disease of native coronary artery without angina pectoris; I42.9 Cardiomyopathy, unspecified; I44.7 Left bundle-branch block, unspecified; R06.09 Other forms of dyspnea
CPT/HCPCS: 99214

== ENCOUNTER → 2024-04-15 12:58 | Outpatient (BNVA) | payer OTHER, SELFPAY | PROVIDERS: PCP Nurse Practitioner Family | DX: I44.7 Left bundle-branch block, unspecified (principal); I25.10 Atherosclerotic heart disease of native coronary artery without angina pectoris; I42.9 Cardiomyopathy, unspecified; R06.09 Other forms of dyspnea; Z98.890 Other specified postprocedural states | CPT/HCPCS: 99212 ==

== ENCOUNTER 2024-04-18 13:36 | Outpatient (AMB) | payer OTHER, SELFPAY ==
--- NOTE | 2024-04-18 13:37 | A.OFFPC_ITS ---
Vital Signs 04/18/24 13:41 Height 5 ft 6 in Weight 153 lb 8 oz BMI 24.8 BP 122/66 Blood Pressure Location Rt brachial Position Sitting Respiration 12 Pulse 85 Pulse Source Pulse Oximeter Temp 97.2 F Temp Source Oral Pulse Oximetry (%) 97 Oxygen Delivery Method Room Air Intake Visit Reasons: ct result/cardiology follow up Intake Note: follow up to review imaging Grants Director Required: No Allergies oxycodone [Percocet] Adverse Reaction (Unknown, Verified 04/18/24 14:01) N/V Medication List - Last Reconciled 04/18/24 by Leigha Talamantes, GRINDING MILL OPERATOR- aspirin (Adult Aspirin Regimen) 81 mg PO DAILY clopidogrel 75 mg PO DAILY sacubitril-valsartan 49-51 mg (Entresto) 1 tab PO BID spironolactone 25 mg PO DAILY Tobacco use date assessed: 04/18/24 Fall risk assessment: No Falls in past year Last assessed Fall Risk: 04/18/24 Dental Screening Dental Screen Date: 04/18/24 Did you have a dental visit in the last 12 months?: Yes Did you have a dental problem in the last 6 months where you did not have access to dental care?: No Was dental information given to patient?: Patient has dentist HPI HPI Comments History of Present Illness Details Carlota 63-year-old female with former tobacco s moker, COPD, ETOH abuse, left bundle branch block, cardiomyopathy, echocardiogram 2006 mildly decreased left ventricular systolic function, ejection [id number]%, diffuse left ventricular hypokinesis, mild mitral valve regurg, severe left ventricular dysfunction with left bundle branch block and coronary artery disease,undergone drug-eluting stent placement to the LAD and RCA with Dr. Kruger on 04/01/2024 Negative sleep study in 2001 Status post cervical spine surgery 2020 Dr. Dubose, undergone drug-eluting stent placement to the LAD and RCA with Dr. Kruger on 04/01/2024 Health Maintenance: ?Colon referred ?Mammo 07/09/2023 ?DEXA ?PAP declined ?Tdap declined, Flu declined Specialists: Lung cancer screening program, referred today smoke 1/2 pack per day x 15 years, QUIT in 11/2023 Cards GI 05/2024 first appt Cardiac rehab @ [facility] - The patient is a 63-year-old female pr esenting with a routine follow-up for chronic heart failure and abdominal issues. - Chronic heart failure is being managed with medication adjustments. Recent cardiac catheterization has addressed heart concerns with resultant medication changes from Brilinta to Plavix noted. - Abdominal bloating and gas are of conc jose alejandro, and a CT scan is pending, delayed previously by prioritization of cardiac interventions. Has pain in chest and upper back, relieved by belching. Sometimes diaphoretic. Ongoing. - There is cervical neck/back pain with a history of two disc replacements causing physical limitations; recent surgical outcomes offer negligible improvements. - The patient's lifestyle includes compl ete smoking cessation and moderated alcohol consumption; cardiac rehabilitation is forthcoming and expected to support endurance enhancements. - Reviews of recent labs were conducted showing stable blood counts and electrolytes, yet a cholesterol check is pending, aimed at ongoing heart health monitoring. Exam Awake alert NAD scleras nonicteric bilat RRR LS CTAB Abd tender generally speaking w/o rebound or gaurding, normoactive bs x 4, negative peritoneal signs , RUQ along the rib cage is a palpable tender oblong area that extends into her side No edema BLE Results - Labs: Blood counts within normal limit s; electrolytes and kidney function tests show normal parameters. Discussion Notes During this visit, I discussed at length with the patient the management of her chronic heart failure and abdominal issues. We reviewed the progression and improvement in symptoms, notably with medication changes. The patient was informed about the impending CT scan of the abdomen to investigate bloating and discomfort and was advised on the importance and protocol of syncing this with her scheduled gastroenterology appointment. We talked about the risk of bleeding associated with Plavix, cautioning against activities that might induce bleeding. Follow-up care, specifically guided by results of ongoing investigations, was emphasized. Assessment and Plan 1. Chronic Heart Failure: Cont fu with C ards. 2. Abdominal Bloating: A CT scan is bein g prioritized to elucidate the reasons behind ongoing abdominal bloating; considering concurrent gastroenterological assessment. Labs today. GI referral active. 3. Shortness of Breath: Monitored as par t of chronic heart failure management; medication changes are anticipated to assist improvement. Cardiac rehab. 4. Back Pain: Current surgical outcomes do not necessitate immediate intervention. The patient maintains activity within tolerable limits. 5. Smoking Cessation and Alcohol Intake: Reinforced efforts towards non-smoking status and moderated beer consumption, advocating for cardiac benefits. 6. Cardiac Rehabilitation: Anticipated t o assist endurance; attendance and active participation encouraged. Patient Instructions - Commence the medication change to Plav ix as directed, noting any changes in the shortness of breath. - Attend all scheduled tests, including the upcoming CT scan, for a co mprehensive evaluation of abdominal symptoms. - Engage with cardiac rehabilitation sta rting soon; pace activities to comfort and mobility limits. - Limit alcohol intake to previously dis cussed levels, maintain smoking cessation, and follow up on any concerning symptoms immediately. - FU once CT results and labs available. - Edu on reasons to seek addl care. Consent Consent for the CT scan of the abdomen was obtained verbally, with the patient acknowledging the need for further assessment of abdominal firmness and bloating. The potential risks and benefits of prompt diagnosis and possible treatment pathways were discussed, including the implications of findings with respect to gastrointestinal consultations. The urgency and necessity of imaging to explore current symptoms were clearly communicated and understood by the patient. Patient was informed and verbally consented to the use of an ambient scribe for clinic note documentation during this visit. Total time spent caring for the patient today was 50 minutes. This includes time spent before the visit reviewing the chart, time spent during the visit, and time spent after the visit on documentation, reviewing laboratory results, diagnostic imaging, medications, performing a medically necessary evaluation, counseling on diagnoses, care coordination, ordering appropriate tests, ordering appropriate medications, review of tests performed by other providers, reporting test results with the patient, communication with other healthcare providers. [facility] Medical History Personal history of nicotine dependence SOB (shortness of breath) Surgical History History of cervical spinal surgery Family History Brother Mental health disorder Cardiovascular disease Mother Hypertension Father Cardiovascular disease Other Cancer Social History Household Members: None Both parents involved: No Caregiver staying overnight: No Housing: House Are you a primary career development associate to a significant other at home: No Do you presently have visiting nurse or other home services: No 75 years or older and lives alone: No Alcohol intake: current Comment: 1-2 drinks per night. Patient Tobacco Use Status: Former Tobacco user Years Smoked: (onset 14yo, 1ppd x 30yrs, 30pyh - quit 10/2023) e-Cigarette/Vaping Use: Never Used Second Hand Smoke Exposure: No service: No Current occupational status: retired Cognitive needs: No Hearing needs: Yes Vision needs: Yes (wear glasses) Questionnaire PHQ-9 Over the last 2 weeks, how often have you been bothered by any of the following problems? 1. Little interest or pleasure in doing things: not at all 2. Feeling down, depressed, or hopeless: not at all 3. Trouble falling or staying asleep, or sleeping too much: not at all 4. Feeling tired or having little energy: not at all 5. Poor appetite or overeating: not at all 6. Feeling bad about yourself - or that you are a failure or have let yourself or your family down: not at all 7. Trouble concentrating on things, such as reading the newspaper or watching television: not at all 8. Moving or speaking so slowly that other people could have noticed. Or the opposite - being so fidgety or restless that you have been moving around a lot more than usual: not at all 9. Thoughts that you would be better off or of hurting yourself in some way: not at all Total score: 0 Depression Screening Interpretation: Negative Depression Screening Done: Yes 93068 - PHQ-9 Billing: Yes Source: Developed by Drs. Artie Veloz, Felipa Vasquez, Pankaj Carey and colleagues, with an educational tucker from [employer]. Thrive Questionnaire Date Thrive assessed: 04/18/24 I am a: Patient What is your living situation today?: I have a steady place to live Within the past 12 months, did the food you bought not last and you didn't have the money to get more?: I choose not to answer this question Within the past 12 months, did you worry whether your food would run out before you got money to buy more?: I choose not to answer this question Do you have trouble paying for medicines?: I choose not to answer this question Do you have trouble getting transportation to medical appointments?: I choose not to answer this question Do you have trouble paying your heating and electricity bill?: I choose not to answer this question Do you have trouble taking care of your child, family member or friend?: I choose not to answer this question Do you have trouble with day-to-day activities such as bathing, preparing meals, shopping, managing finances, etc.?: Yes Are you currently unemployed and looking for a job?: No Are you interested in more education?: No Please select the resources that you would like help with: None Currently or been in a relationship where the following occur: I choose not to answer THRIVE Score: 0 AUDIT C Alcohol Use Questionnaire (AUDIT-C) 1. How often do you have a drink containing alcohol?: 4 or more times a week 2. How many drinks containing alcohol do you have on a typical day when you are drinking?: 3 or 4 3. How often do you have six or more drinks on one occasion?: Less than monthly Total Score: 6 Score Reviewed/Action Taken: Yes PETRONA-7 AMB Questionnaire PETRONA-7 Date PETRONA - 7 assessed: 04/18/24 Feeling nervous, anxious, or on edge: 0 = Not at all Not being able to stop or control worryin = Not at all Worrying too much about different things: 0 = Not at all Trouble relaxin = Not at all Being so restless that it is hard to sit still: 0 = Not at all Becoming easily annoyed or irritable: 0 = Not at all Feeling afraid as if something awful might happen: 0 = Not at all Total PETRONA-7 score (0-4 normal; 5-9 mild; 10-14 moderate; 15-21 severe): 0 Source: Developed by Drs. Artie Veloz, Felipa Vasquez, Pankaj Carey and colleagues, with an educational tucker from [employer]. PETRONA-7 Assessment Billing PETRONA-7 Assessment Tool: PETRONA-7 Assessment 75784 Physical exam (Primary Care) Vital Signs: Last Vital Signs Temp 97.2 F 04/18/24 13:41 Pulse 85 04/18/24 13:41 Resp 12 04/18/24 13:41 BP 122/66 04/18/24 13:41 Pulse Ox 97 04/18/24 13:41 Oxygen Delivery Method Room Air 04/18/24 13:41 BMI result Body Mass Index 24.8 Tobacco/Smoking Status: Tobacco use Status Tobacco use date assessed 04/18/24 04/18/24 13:39 Patient Tobacco Use Status Former Tobacco user 04/18/24 13:39 e-Cigarette/Vaping Use Never Used 04/18/24 13:39 Depression Screening Interpretation: Negative Thrive Assessment: Date of Thrive Assessment Date Thrive assessed 04/18/24 04/18/24 13:39 Currently or been in a relationship where the following occur: I choose not to answer Coding Level of Care Code Est Pt Level 5 (21884) Complex EM visit Add On G2211 Diagnoses Abdominal bloating R14.0 Generalized abdominal pain R10.84 Abdominal location: generalized Left bundle branch block I44.7 S/P cardiac catheterization Z98.890 Chronic diastolic congestive heart failure I50.32 Heart failure type: diastolic Heart failure chronicity: chronic Coronary artery disease involving [place] coronary artery of [place] heart without angina pectoris I25.10 Coronary Disease-Associated Artery/Lesion type: [place] artery [place] vs. transplanted heart: [place] heart Associated angina: without angina Uncomplicated alcohol dependence F10.20 Substance use status: uncomplicated Additional Codes PETRONA-7 Assessment Billing - PETRONA-7 Assessment Tool: PETRONA-7 Assessment 03197 ([id number]) PHQ-9 - 86881 - PHQ-9 Billing: Yes ([id number]) Assessment & Plan Assessment & Plan (1) Abdominal bloating: Code(s): R14.0 - Abdominal distension (gaseous) Category: Medical (2) Abdominal pain: Code(s): R10.9 - Unspecified abdominal pain Category: Medical Qualifiers: Abdominal location: generalized Qualified Code(s): R10.84 - Generalized abdominal pain (3) Left bundle branch block: Code(s): I44.7 - Left bundle-branch block, unspecified Category: Medical (4) S/P cardiac catheterization: Comment: severe left ventricular dysfunction with left bundle branch block and coronary artery disease,undergone drug-eluting stent placement to the LAD and RCA with Dr. Kruger on 04/01/2024 Code(s): Z98.890 - Other specified postprocedural states Category: Surgical (5) CHF (congestive heart failure): Comment: Echo 01/2024 Conclusions: - 1. Moderately dilated left ventricle with severely reduced LV ejection fraction of 10-15%, with pseudonormal filling pattern 2. Moderately dilated left atrium 3. Moderate mitral regurgitation due to LV pathology 4. Normal RV systolic pressure 5. No gross pericardial effusion Code(s): I50.9 - Heart failure, unspecified Category: Medical Qualifiers: Heart failure type: diastolic Heart failure chronicity: chronic Qualified Code(s): I50.32 - Chronic diastolic (congestive) heart failure (6) CAD (coronary artery disease): Code(s): I25.10 - Atherosclerotic heart disease of [place] coronary artery without angina pectoris Category: Medical Qualifiers: Coronary Disease-Associated Artery/Lesion type: [place] artery [place] vs. transplanted heart: [place] heart Associated angina: without angina Qualified Code(s): I25.10 - Atherosclerotic heart disease of [place] coronary artery without angina pectoris (7) EtOH dependence: Code(s): F10.20 - Alcohol dependence, uncomplicated Category: Medical Qualifiers: Substance use status: uncomplicated Qualified Code(s): F10.20 - Alcohol dependence, uncomplicated Plan . Orders: Orders CT abdomen pelvis wo IV con Today R10.84 - Generalized abdominal pain, R14.0 - Abdominal distension (gaseous)
[2024-04-18 13:41] VITALS: BP 122/66; PULSE 85; RESP 12; TEMP 36.2; O2SAT 97; BMI 24.8
== END 2024-04-18 14:24 | disposition home or self-care (01) ==
PROVIDERS: PCP Nurse Practitioner Family; Visit Provider Nurse Practitioner Family
DX: R14.0 Abdominal distension (gaseous) (principal); I50.32 Chronic diastolic (congestive) heart failure; F10.20 Alcohol dependence, uncomplicated; R10.84 Generalized abdominal pain; I44.7 Left bundle-branch block, unspecified; Z98.890 Other specified postprocedural states; I25.10 Atherosclerotic heart disease of native coronary artery without angina pectoris

== ENCOUNTER → 2024-04-18 13:36 | Outpatient (BNVA) | payer OTHER, SELFPAY | PROVIDERS: PCP Nurse Practitioner Family; Visit Provider Nurse Practitioner Family | DX: R14.0 Abdominal distension (gaseous) (principal); R10.84 Generalized abdominal pain; I44.7 Left bundle-branch block, unspecified; I50.32 Chronic diastolic (congestive) heart failure; I25.10 Atherosclerotic heart disease of native coronary artery without angina pectoris; F10.20 Alcohol dependence, uncomplicated; Z98.890 Other specified postprocedural states | CPT/HCPCS: 96127; 99212 ==

== ENCOUNTER 2024-05-16 10:17 | Outpatient (AMB) | payer OTHER, SELFPAY ==
--- NOTE | 2024-05-16 10:20 | A.OFFPC_ITS ---
Vital Signs 3 05/16/24 10:23 Height 5 ft 6 in Weight 152 lb 6 oz BMI 24.6 BP 102/63 Blood Pressure Location Rt brachial Position Sitting Respiration 12 Pulse 69 Pulse Source Pulse Oximeter Temp 97.3 F Temp Source Oral Pulse Oximetry (%) 96 Oxygen Delivery Method Room Air Intake Visit Reasons: [facility] ED F/U Pt.had a fall/numbness in left leg Intake Note: [facility] ED follow up Hydraulic Press In Operator Required: No Allergies oxycodone [Percocet] Adverse Reaction (Unknown, Verified 05/16/24 11:10) N/V Medication List - Last Reconciled 05/16/24 by Leigha Talamantes, LEVERS LACE MACHINE OPERATOR- aspirin (Adult Aspirin Regimen) 81 mg PO DAILY clopidogrel 75 mg PO DAILY sacubitril-valsartan 49-51 mg (Entresto) 1 tab PO BID spironolactone 25 mg PO DAILY Tobacco use date assessed: 05/16/24 Fall risk assessment: 1 Fall in past year Last assessed Fall Risk: 05/16/24 Dental Screening Dental Screen Date: 05/16/24 Did you have a dental visit in the last 12 months?: Yes Did you have a dental problem in the last 6 months where you did not have access to dental care?: No Was dental information given to patient?: Patient has dentist HPI HPI Comments 2 History of Present Illness0 Details Carlota 63-year-old female with former tobacco s moker, COPD, ETOH abuse, left bundle branch block, cardiomyopathy, echocardiogram 2006 mildly decreased left ventricular systolic function, ejection -08%, diffuse left ventricular hypokinesis, mild mitral valve regurg, severe left ventricular dysfunction with left bundle branch block and coronary artery disease,undergone drug-eluting stent placement to the LAD and RCA with Dr. Kruger on 04/01/2024 Negative sleep study in 2001 Status post cervical spine surgery 2020 Dr. Dubose, undergone drug-eluting stent placement to the LAD and RCA with Dr. Kruger on 04/01/2024 Health Maintenance: ?Colon referred ?Mammo 07/09/2023 ?DEXA ?PAP declined ?Tdap declined, Flu declined Specialists: Lung cancer screening program, referred smoke 1/2 pack per day x 15 years, QUIT in 11/2023 Cards GI 05/2024 first appt Cardiac rehab @ [facility] Here today for hospital discharge follow up. She underwent a cardiac catheterization and experience visual changes immediately after. She was evaluated at [facility] with imaging and labs. Visual disturbances resolved on their own was thought to be related to iodine. This was in Mar. No further changes were made in her treatment plan. This paperwork was reviewed. Unfortunately on 04/23/2024 she returned to [facility] as she developed weakness in her left leg and experienced a fall. This is associated with back pain. Workup reviewed. Neurosurgery was consulted however she was not a candidate for any interventions in relation to her back due to her recent cardiac catheterization and use of Plavix. She reports lots of bruising with the Plavix. Her left lower extremity is weak. She feels like that he was going to give out at any time. She was referred to physical therapy and has gone twice but as part like her symptoms have gotten worse since starting physical therapy. She is now using a cane and a walker. She was COPD and is requesting a refill on her albuterol. Uses it sparingly with good effect. Results - Tests and Diagnostics: - MRI of lumbar spine: Mild to moderate degenerative changes with grade 1 spondylolisthesis, diffuse annular bulging, probable disc extrusion, and moderate to severe foraminal stenosis. - CT scan of lumbar spine: Shows mild to moderate degenerative changes and stenosis consistent with MRI findings. Exam Awake alert NAD PERRLA EOMI Neck FROM RRR LS CTAB +PP bilat, no edema, decreased patella r eflex on L, antalgic gait favoring L, walking w cane Pain over LS and right paraspinal area w/ palpation No edema BLE No other deficits noted Plan: Do not participate in physical therapy until evaluated by Neurosurgery. An urgent reports a [facility] spine clinic was placed. The medical payment poster was able to call over and arrange for an appointment for her next week. She does have cyclobenzaprine on hand and I have advised that it is okay to use this as needed sparingly. She was on Plavix in his aware of bleeding risk associated with the falls. She should continue to use her mobility aid such as her cane in her walker. She has a handicap placard. Albuterol refills sent Which she should return to the office as scheduled, sooner as needed. Educated on reasons to seek higher level of care in regards to her back pain. [facility] Medical History Personal history of nicotine dependence SOB (shortness of breath) Surgical History History of cervical spinal surgery Family History Brother Mental health disorder Cardiovascular disease Mother Hypertension Father Cardiovascular disease Other Cancer Social History Household Members: None Both parents involved: No Caregiver staying overnight: No Housing: House Are you a primary cna caregiver to a significant other at home: No Do you presently have visiting nurse or other home services: No 75 years or older and lives alone: No Alcohol intake: current Comment: 1-2 drinks per night. Patient Tobacco Use Status: Former Tobacco user Years Smoked: (onset 14yo, 1ppd x 30yrs, 30pyh - quit 10/2023) e-Cigarette/Vaping Use: Never Used Second Hand Smoke Exposure: No service: No Current occupational status: retired Cognitive needs: No Hearing needs: Yes Vision needs: Yes (wear glasses) Questionnaire Thrive Questionnaire Date Thrive assessed: 04/18/24 I am a: Patient What is your living situation today?: I have a steady place to live Within the past 12 months, did the food you bought not last and you didn't have the money to get more?: I choose not to answer this question Within the past 12 months, did you worry whether your food would run out before you got money to buy more?: I choose not to answer this question Do you have trouble paying for medicines?: I choose not to answer this question Do you have trouble getting transportation to medical appointments?: I choose not to answer this question Do you have trouble paying your heating and electricity bill?: I choose not to answer this question Do you have trouble taking care of your child, family member or friend?: I choose not to answer this question Do you have trouble with day-to-day activities such as bathing, preparing meals, shopping, managing finances, etc.?: Yes Are you currently unemployed and looking for a job?: No Are you interested in more education?: No Please select the resources that you would like help with: None Currently or been in a relationship where the following occur: I choose not to answer THRIVE Score: 0 PETRONA-7 AMB Questionnaire PETRONA-7 Date PETRONA - 7 assessed: 04/18/24 Source: Developed by Drs. Artie Veloz, Felipa Vasquez, Pankaj Carey and colleagues, with an educational tucker from [employer]. Physical exam (Primary Care) Vital Signs: Last Vital Signs Temp 97.3 F 05/16/24 10:23 Pulse 69 05/16/24 10:23 Resp 12 05/16/24 10:23 BP 102/63 05/16/24 10:23 Pulse Ox 96 05/16/24 10:23 Oxygen Delivery Method Room Air 05/16/24 10:23 BMI result Body Mass Index 24.6 Tobacco/Smoking Status: Tobacco use Status Tobacco use date assessed 05/16/24 05/16/24 10:25 Patient Tobacco Use Status Former Tobacco user 05/16/24 10:20 e-Cigarette/Vaping Use Never Used 05/16/24 10:20 Thrive Assessment: Date of Thrive Assessment Date Thrive assessed 04/18/24 05/16/24 10:20 Currently or been in a relationship where the following occur: I choose not to answer Results Reviewed Results Reviewed: Coding Level of Care Code Est Pt Level 5 (68777) Complex EM visit Add On G2211 Diagnoses Hospital discharge follow-up Z09 Radicular pain of left lower extremity M54.10 Central stenosis of spinal canal M48.00 Simple chronic bronchitis J41.0 COPD type: chronic bronchitis Chronic bronchitis type: simple S/P cardiac catheterization Z98.890 Assessment & Plan Assessment & Plan (1) Hospital discharge follow-up: Code(s): Z09 - Encounter for follow-up examination after completed treatment for conditions other than malignant neoplasm (2) Radicular pain of left lower extremity: Comment: MRI AND CT SCAN 04/23/24 AT [facility] Code(s): M54.10 - Radiculopathy, site unspecified Category: Medical (3) Central stenosis of spinal canal: Comment: MRI AND CT SCAN 04/23/24 AT [facility] Code(s): M48.00 - Spinal stenosis, site unspecified Category: Medical (4) COPD (chronic obstructive pulmonary disease): Code(s): J44.9 - Chronic obstructive pulmonary disease, unspecified Category: Medical Qualifiers: COPD type: chronic bronchitis Chronic bronchitis type: simple Q ualified Code(s): J41.0 - Simple chronic bronchitis (5) S/P cardiac catheterization: Comment: severe left ventricular dysfunction with left bundle branch block and coronary artery disease,undergone drug-eluting stent placement to the LAD and RCA with Dr. Kruger on 04/01/2024 Code(s): Z98.890 - Other specified postprocedural states Category: Medical Plan . Orders: Referrals 2 Neuro Spine Referral M48.00 - Spinal stenosis, site unspecified, M54.10 - Radiculopathy, site unspecified Medications: Refilled 2 albuterol sulfate 90 mcg/actuation 2 puffs inhalation Q6H PRN 6.7 grams 2RF shortness of breath or wheezing
[2024-05-16 10:23] VITALS: BP 102/63; PULSE 69; RESP 12; TEMP 36.3; O2SAT 96; BMI 24.6
== END 2024-05-16 11:28 | disposition home or self-care (01) ==
LOC: HO.HMCFM 10:17
PROVIDERS: PCP Nurse Practitioner Family; Visit Provider Nurse Practitioner Family
DX: M54.10 Radiculopathy, site unspecified (principal); M48.00 Spinal stenosis, site unspecified; J41.0 Simple chronic bronchitis; Z09 Encounter for follow-up examination after completed treatment for conditions other than malignant neoplasm; Z98.890 Other specified postprocedural states

== ENCOUNTER → 2024-05-16 10:17 | Outpatient (BNVA) | payer OTHER, SELFPAY | PROVIDERS: PCP Nurse Practitioner Family; Visit Provider Nurse Practitioner Family | DX: Z09 Encounter for follow-up examination after completed treatment for conditions other than malignant neoplasm (principal); M54.10 Radiculopathy, site unspecified; J41.0 Simple chronic bronchitis; Z98.890 Other specified postprocedural states | CPT/HCPCS: 99212 ==

== ENCOUNTER 2024-05-21 11:44 | Outpatient (AMB) | payer OTHER, SELFPAY ==
--- NOTE | 2024-05-21 11:48 | MHC.OFFVIS ---
Vital Signs 05/21/24 11:49 Height 5 ft 6 in Weight 155 lb 10.342 oz BMI 25.1 BP 104/56 L Blood Pressure Location Rt brachial Position Sitting Pulse 94 Pulse Source Pulse Oximeter Pulse Oximetry (%) 95 Oxygen Delivery Method Room Air Intake Visit Reasons: Symptomatic colo scrn Intake Note: ESTABLISHED PATIENT for abd bloating, pain, early satiety, + EToH dependency. Chief Complaint; C/O generalized abd pain which seems to primarily present in RLQ, excessive gas, bloating, diarrhea. Pt denies any melena/hematochezia. No additional concerns at this time. Pt reports 1 colo >10 years ago via [facility]. Gas Cutter Required: No Accompanied by: Self / Same As Patient Allergies oxycodone [Percocet] Adverse Reaction (Unknown, Verified 05/21/24 11:48) N/V HPI HPI Symptomatic colo scrn: Details: 63-year-old female with past medical history of CAD, cardiomyopathy, ETOH dependence, COPD, palpitations, Congestive heart failure, left bundle-branch block, status post cardiac catheterization in March on Plavix and aspirin is here today for initial consultation. Patient was sent to us as she is due to go for colonoscopy and because of her current and ongoing GI symptoms. Patient has frequent postprandial loose stools and then constipated. Sometimes patient is unable to have a bowel movement for day or 2 and then she will have multiple bowel movements throughout the day. Patient admits that she continues to drink alcohol sometimes 5 beers a day. Patient however drinks beer throughout the whole day if not all at 1 setting. Patient continues to smoke cigarettes. Patient denies melena, hematochezia, unintentional weight loss or ribbon like stools. PCP is sending patient for CT scan of abdomen and pelvis went IV contrast. Patient has a history of diverticulosis. [facility] Medical History (Updated 05/21/24 @ 19:15 by NANCY Barrow) Cardiomyopathy EtOH dependence Central stenosis of spinal canal Radicular pain of left lower extremity CAD (coronary artery disease) Left bundle branch block CHF (congestive heart failure) COPD (chronic obstructive pulmonary disease) Personal history of nicotine dependence SOB (shortness of breath) Surgical History (Updated 05/21/24 @ 19:15 by NANCY Barrow) S/P cardiac catheterization H/O heart surgery History of cervical spinal surgery Family History Brother Mental health disorder Cardiovascular disease Mother Hypertension Father Cardiovascular disease Other Cancer Social History (Updated 05/21/24 @ 19:16 by Krysten Cunningham, [facility]) Household Members: None Both parents involved: No Caregiver staying overnight: No Housing: House Are you a primary healthcare consulting manager to a significant other at home: No Do you presently have visiting nurse or other home services: No 75 years or older and lives alone: No Alcohol intake: current Comment: 4-5 drinks a day Patient Tobacco Use Status: Former Tobacco user Years Smoked: (onset 14yo, 1ppd x 30yrs, 30pyh - quit 10/2023) e-Cigarette/Vaping Use: Never Used Second Hand Smoke Exposure: No service: No Current occupational status: retired Cognitive needs: No Hearing needs: Yes Vision needs: Yes (wear glasses) Review of Systems Const Denies weight gain and Denies weight loss ENT Reports no additional complaints, Denies dysphagia and Denies odynophagia Card Reports no additional complaints Resp Reports no additional complaints GI Reports abdominal pain (RUQ), Reports belching, Denies melena, Reports bloating, Denies change in bowel habits, Reports tenesmus, Denies dysphagia, Denies excessive flatus, Denies dyspepsia, Denies heartburn, Reports diarrhea, Denies loose stools, Denies nausea, Denies odynophagia and Denies vomiting Reports no additional complaints Musc Reports no additional complaints Neuro Reports no additional complaints Psych Reports no additional complaints Endo Reports no additional complaints Physical Exam Vital Signs: Last Vital Signs Pulse 94 05/21/24 11:49 BP 104/56 L 05/21/24 11:49 Pulse Ox 95 05/21/24 11:49 Oxygen Delivery Method Room Air 05/21/24 11:49 BMI result Body Mass Index 25.1 Const Other: Ambulating with cane General: healthy appearing, no acute distress and well developed Nutritional Appearance: well nourished Orientation/consciousness: patient oriented x3 Resp Effort & Inspection: normal respiratory effort, able to speak in complete sentences, no tracheal deviation and symmetric chest movement Auscultation: clear to auscultation bilaterally Cardio Rate: regular rate GI Inspection: Yes normal to inspection and No distended Palpation (GI): Soft to palpation, not firm, nontender and No hepatosplenomegaly present Auscultation: normal bowel sounds General: Yes no CVA tenderness Back/Spine/Pelvis Back: no CVA tenderness Skin General skin exam: elasticity normal, turgor normal and dry skin Neuro General: patient oriented x3 Psych Appearance: grossly normal Mental Status: mental status grossly normal Assessment & Plan Assessment & Plan (1) Abdominal bloating: Code(s): R14.0 - Abdominal distension (gaseous) Category: Medical (2) Abdominal pain: Code(s): R10.9 - Unspecified abdominal pain Category: Medical Qualifiers: Abdominal location: generalized Qualified Code(s): R10.84 - Generalized abdominal pain (3) Postprandial diarrhea: Code(s): K52.9 - Noninfective gastroenteritis and colitis, unspecified (4) Constipation: Code(s): K59.00 - Constipation, unspecified Qualifiers: Constipation type: slow transit constipation Qualified Code(s): K59.01 - Slow transit constipation (5) Belching: Code(s): R14.2 - Eructation Plan Patient reports abdominal pain, will check lipase, transglutaminase, magnesium, thyroid study, vitamin-D, B12 and folate. Will also do liver enzymes. Patient admits to drinking alcohol, beer daily. Spoke with Dr. Kruger and we will hold off on sending her for colonoscopy at this time even though it qualifies as diagnostic. Patient denies any melena, hematochezia, unintentional weight loss or ribbon like stools. Patient is going next week for CT scan of abdomen and pelvis. Constipation could be related to diverticular stricture and patient should have this CT scan done with oral contrast as well, however it might not be covered by her insurance. Patient will try fiber to help her bulk stools as well as start taking senna to help her eliminate her bowels. Patient will follow-up in 3 months to discuss colonoscopy and hopefully patient will be cleared. Discussed with patient the importance of abstinence from alcohol and tobacco. Patient is agreeable to current plan of care and verbalizes understanding of instructions. She was given the opportunity to ask questions and all questions answered. Thank you for allowing me to participate in her care Orders: Orders Lipase Today R10.9 - Unspecified abdominal pain Transglutaminase IgA Today R10.9 - Unspecified abdominal pain Magnesium Today N18.9 - Chronic kidney disease, unspecified TSH reflex Free T4 Today K59.00 - Constipation, unspecified Vitamin D 25-OH (D2 and D3) Today E55.9 - Vitamin D deficiency, unspecified Vitamin B12 and Folate Today R19.7 - Diarrhea, unspecified Liver Panel Today R74.01 - Elevation of levels of liver transaminase levels CT abdomen pelvis w IV con Today K57.90 - Diverticulosis of intestine, part unspecified, without perforation or abscess without bleeding, R10.9 - Unspecified abdominal pain, R19.8 - Other specified symptoms and signs involving the digestive system and abdomen Medications: New sennosides (Natural Senna Laxative) 17.2 mg (2 x 8.6 mg) PO BEDTIME 60 tabs 3RF constipation K59.00 - Constipation, unspecified Coding Level of Care Code New Pt Level 4 (43916) Diagnoses Abdominal bloating R14.0 Generalized abdominal pain R10.84 Abdominal location: generalized Postprandial diarrhea K52.9 Slow transit constipation K59.01 Constipation type: slow transit constipation Belching R14.2 Time Spent (min) 45 Comment 30 minutes spent with patient and additional 10 minute spent reviewing her records
[2024-05-21 11:49] VITALS: BP 104/56; PULSE 94; O2SAT 95; BMI 25.1
== END 2024-05-21 12:17 | disposition home or self-care (01) ==
LOC: HO.HGI 11:45
PROVIDERS: PCP Nurse Practitioner Family; Visit Provider Nurse Practitioner Family
DX: R14.0 Abdominal distension (gaseous) (principal); R10.84 Generalized abdominal pain; K52.9 Noninfective gastroenteritis and colitis, unspecified; K59.01 Slow transit constipation; R14.2 Eructation
CPT/HCPCS: 99204

== ENCOUNTER → 2024-05-21 11:44 | Outpatient (BNVA) | payer OTHER, SELFPAY | PROVIDERS: PCP Nurse Practitioner Family; Visit Provider Nurse Practitioner Family | DX: K59.01 Slow transit constipation (principal); K52.9 Noninfective gastroenteritis and colitis, unspecified; R14.0 Abdominal distension (gaseous); R10.84 Generalized abdominal pain; R14.2 Eructation | CPT/HCPCS: 99202 ==

== ENCOUNTER 2024-05-29 09:29 | Outpatient (REF) | payer OTHER, SELFPAY ==
--- NOTE | ~2024-05-29 | CT_ITS ---
CLINICAL HISTORY: R10.9 - Unspecified abdominal pain CT abdomen and pelvis with contrast Comparison: None Findings: Heart is enlarged. The liver is normal in size without suspicious focal hepatic lesions. No intrahepatic or extrahepatic ductal dilatation is seen. The hepatic and portal veins are patent. No calcified gallstones in the gallbladder. Small fluid in the gallbladder fossa is nonspecific. Pancreas, spleen and adrenals are normal in appearance. No suspicious focal lesion of the kidneys. There is a cyst in the left kidney. No hydronephrosis or calculi. The abdominal aorta demonstrates no evidence of aneurysmal dilatation or dissection. Atherosclerosis calcification of the aorta and in the branches. Mild colonic diverticulosis with mild wall thickening of the sigmoid colon. No evidence of bowel obstruction. Appendix is normal. The pelvic organs are within normal limits. No intraperitoneal free air or fluid is visualized. No pathologic lymphadenopathy is seen. There are no osseous or soft tissue abnormalities. IMPRESSION: Colonic diverticulosis with mild bowel wall thickening of the sigmoid colon. Mild acute diverticulitis can not be excluded. Correlation with colonoscopy findings as indicated. Additional findings as above. This document has been electronically signed by: Roxann Nava MD on 05/29/2024 16:11:34
[2024-05-29] MEDS: iohexoL 350 MG/ML 75 ML INFUS..BTL 85 ML IV (12:13)
[2024-05-29] MEDS: Barium Sulfate Oral (Vanilla) 450 ML ORAL.SUSP 900 ML PO (12:14)
[2024-05-29 15:15] LABS: Creatinine POC 0.9 mg/dL (0.5-1.4); GFR POC > 60
== END 2024-05-29 09:30 | disposition home or self-care (01) ==
LOC: HO.CT 09:29
PROVIDERS: Nurse Practitioner Family; PCP Nurse Practitioner Family; Visit Provider Nurse Practitioner Family
DX: R10.9 Unspecified abdominal pain (principal); R19.8 Other specified symptoms and signs involving the digestive system and abdomen; K57.90 Diverticulosis of intestine, part unspecified, without perforation or abscess without bleeding
CPT/HCPCS: 74177; 82565; Q9967

== ENCOUNTER → 2024-05-29 09:34 | Outpatient (BNV) | payer OTHER, SELFPAY | PROVIDERS: PCP Nurse Practitioner Family; Visit Provider Nuclear Medicine | DX: K57.30 Diverticulosis of large intestine without perforation or abscess without bleeding (principal) | CPT/HCPCS: 74177 ==

== ENCOUNTER 2024-05-30 12:49 | Outpatient (AMB) | payer OTHER, SELFPAY ==
--- NOTE | 2024-05-30 12:59 | A.SPINEOV_ITS ---
Intake Visit Reasons: follow up visit from 05/23/24 pt will bring disc Intake Note: Ms. Martinez is here today c/o low back pain. MRI done @ [facility] (brought disc) Dye Tub Tender Required: No Allergies oxycodone [Percocet] Adverse Reaction (Unknown, Verified 05/23/24 14:43) N/V Assessment & Plan Assessment & Plan (1) Lumbar disc herniation: Code(s): M51.26 - Other intervertebral disc displacement, lumbar region Category: Medical Plan Dear Leigha, Thank you for referring Mrs martinez to our office today. She is a very nice 63-year-old female presents to the office today for evaluation of about 4 weeks of severe onset of pain in the left side of her low back going into her buttock, radiating into her thigh with numbness from her knee down into the anterior tibial region. She feels like the numbness maybe getting slightly better. The pain however only continues to stay in his not responded to some gentle conservative treatment including physical therapy and [id number] pain medications. She is having a lot of trouble walking. She often times feels like her legs going to go off from underneath her. She underwent an MRI at [facility] showing herniated disc on the left at L4-5 and was referred over to see us. No cauda equina symptoms. PMH: Recently underwent a stents in her heart in [address] This was done in March. She has been on dual antiplatelet therapy since that time and is expected to continue that for 6-8 months during the endothelialization process. Other than that she tells me she has healthy without any major problems. Her records indicate however that she had cardiomyopathy and her ejection fraction was 10-15% back in January. No history of strokes, pulmonary disease, liver disease, kidneys, major intestinal surgery, cancer blood clots. Social hx: Quit smoking 7 months ago, drinks about 4-5 beers a day and does not use any recreational drugs Medications: Baby aspirin, Plavix, Entresto, spironolactone Allergies: Percocet Physical exam: Awake alert oriented, walks with a cane has an antalgic gait, strength in the lower extremities is normal with the exception of some mild left hip flexion weakness which I think is guarding more than anything else. Diminished reflex at the left patella. Imaging review: Lumbar MRI done at [facility] shows herniated disc fragment at L4-5 which is migrated upward behind the vertebral body compressing the left L5 nerve root. Impression: 63-year-old female presents with herniated disc on the left at L4- 5, she has shooting pain down her left leg as well as numbness from about the knee down to the anterior tibial region toward her ankle. She has started with physical therapy, did 2 sessions but it just been too painful to continue. She is limited on what pain medication she can take because she has been on dual antiplatelet therapy for her heart stents which went in 2 months ago. Typically this is a patient we might offer lumbar microdiskectomy. Because of the need for the antiplatelet therapy for stent endothelialization, she is going to be unable to come off this for 6-8 months, so right now we could not offer her surgery. Fortunately her strength is good so there is no urgency here. I did discuss the fact with her that 90% of disc herniations in the lumbar spine will resolve on their own without surgery so time is on her side. If something escalates or changes she will call me, but I would like to see her back in 2 months and we can re-evaluate where she is at. If at that time she is still in intense pain, we can try to coordinate with her cardiology team to see if they would let her come off the medications for surgery at around the 6 month point. Thank you for allowing us to care for your patient. The total time spent with this visit with this patient was 45 minutes reviewing history, physical exam, lumbar imaging review, and implementation of treatment plan or further diagnostic testing Homero Ewing MD,PhD [facility] Coding Level of Care Code New Pt Level 4 (22566) Diagnoses Lumbar disc herniation M51.26
== END 2024-05-30 13:35 | disposition home or self-care (01) ==
LOC: HO.HNS 12:50
PROVIDERS: PCP Nurse Practitioner Family; Visit Provider Physician Assistant
DX: M51.26 Other intervertebral disc displacement, lumbar region (principal)
CPT/HCPCS: 99204

== ENCOUNTER → 2024-05-30 12:49 | Outpatient (BNVA) | payer OTHER, SELFPAY | PROVIDERS: PCP Nurse Practitioner Family; Visit Provider Physician Assistant | DX: M51.26 Other intervertebral disc displacement, lumbar region (principal) | CPT/HCPCS: 99202 ==

== ENCOUNTER → 2024-07-11 12:56 | Outpatient (REF) | payer OTHER, SELFPAY ==
--- NOTE | 2024-07-11 12:58 | CA_ITS ---
Transthoracic Echocardiogram Patient (Last, First, Middle): Ailyn Martinez, Gender: Female Date of : 1960 Age: 63 Procedure Date: 07/11/2024 Procedure Type: Transthoracic Echocardiogram Location: OP Height: 167.64 cm Weight: 67.59 kg BSA: 1.76 m2 Heart Rate: 87 bpm BP: 116 / 64 mmHg Timekeeper: MERRY Referring MD: Shiva Phillips NP Symptoms: I42.9 - Cardiomyopathy, unspecified Study Quality: Adequate ECG Rhythm: Sinus Conclusions: - Moderately increased left ventricular cavity size. There is normal left ventricular wall thickness. The left ventricular systolic function is severely decreased. The visually estimated ejection fraction is between 20-25%. - Normal right ventricular cavity size and systolic function. - There is mild to moderate mitral valve regurgitation. Findings Left Ventricle Moderately increased left ventricular cavity size. There is normal left ventricular wall thickness. The left ventricular systolic function is severely decreased. The visually estimated ejection fraction is between 20 25%. There is severe global hypokinesis. Diastolic function is indeterminate on the basis of available data. Right Ventricle Normal right ventricular cavity size and systolic function. Atria The left atrium is likely dilated. The right atrium is normal in size. Aortic Valve Normal aortic valve structure and function. There is no aortic valve stenosis. There is no aortic valve regurgitation. Mitral Valve Normal mitral valve structure and function. The mitral valve appears normal. There is mild to moderate mitral valve regurgitation. There is no mitral valve stenosis. Pulmonic Valve The pulmonic valve is likely normal. Tricuspid Valve Normal tricuspid valve structure. There is no tricuspid valve regurgitation. Tricuspid regurgitation envelope is inadequate for calculation of right ventricular systolic pressure. Normal right atrial pressure. Great Vessels All visible segments of the aorta are normal in size. The visualized portions of the pulmonary artery and branches are normal. Venous The inferior vena cava is normal in size and collapses greater than 50% with inspiration. Pericardium/Pleural There is no evidence of pericardial effusion. Prior Study Comparison No significant change compared to prior study dated: 02/01/2024. Measurements 2D Linear Measurements IVSd: 0.68 0.6-0.9/0.6-1.0 cm LVIDd: 6.32 3.9-5.3/4.2-5.9 cm LVIDd Index: 3.59 2.4-3.2/2.2-3.1 cm/m2 LVIDs: 5.94 2.0-3.6 cm LVPWd: 1.29 0.7-1.1 cm LA Diam: 4.60 2.7-3.8/3.0-4.0 cm LAIDs Index: 2.61 1.5-2.3 cm/m2 LV Mass: 329.55 67-162/88-224 g LV Mass Index: 187.24 43-95/49-115 g/m2 LVOT Diam: 2.10 3.0+(-)1.3 cm 2D Systolic Function EF 4C: 28.60 >55% EF 2C: 18.60 >55% EF BiP: 24.60 >55% Mitral Valve MV Pk E: 1.08 MV PK A: 1.29 E/A: 0.80 MR Vol - PW Dopp: 19.88 MR VTI: 1.42 MR ERO: 14.00 MR Alias Rusty: 0.39 MR RAD: 0.50 Aortic Valve AoV Pk Rusty: 1.17 AoV Pk Grad: 5.00 THUY: 2.28 LVOT LVOT Pk Rusty: 0.71 LVOT Mn Rusty: 0.53 LVOT VTI: 0.15 LVOT Pk Grad: 2.00 LVOT Mn Grad: 1.00 LVOT Diam: 2.10 LVOT Area: 3.46 Diastolic Function MV Pk E: 1.08 MV Pk A: 1.29 E/A: 0.80 Right Ventricle TAPSE (mm): 14.10 TVS' Rusty: 11.60 Tricuspid Valve RA Press: 3.00 Great Vessels Aorta Sinus of Valsalva: 2.70 2.0-3.5 cm Ao Asc: 3.10 2.1-3.4 cm Pulmonary Valve PV Pk Rusty: 0.80 Peak PV Grad: 3.00 Updated in Other Vendor System with Status of Final Levar Kruger MD electronically signed on 07/15/2024 12:35:43 PM with status of Final
== END ==
LOC: HO.CARD 12:56
PROVIDERS: PCP Nurse Practitioner Family
DX: I42.9 Cardiomyopathy, unspecified (principal)
CPT/HCPCS: 93306

== ENCOUNTER → 2024-07-11 12:58 | Outpatient (BNV) | payer OTHER, SELFPAY | PROVIDERS: PCP Nurse Practitioner Family; Visit Provider Internal Medicine Cardiovascular Disease | DX: I50.9 Heart failure, unspecified (principal); I34.0 Nonrheumatic mitral (valve) insufficiency | CPT/HCPCS: 93306 ==

== ENCOUNTER 2024-07-21 13:23 | Outpatient (AMB) | payer OTHER, SELFPAY ==
--- NOTE | 2024-07-21 13:34 | MHC.OFFVIS ---
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 She recently had an echocardiogram done for dyspnea on exertion which showed severe LV dysfunction. She has left bundle-branch block. She is a former smoker and quit smoking in October but was smoking for approximately 50 years. She also has been a drinker and drinks 5 beers every day. She is saying she has been short of breath over the last year but more so over the last few months. No orthopnea or PND but mostly dyspnea on exertion. She also gets some chest heaviness with activities. She is saying that she had heart failure in the past and had some testing done at [facility]. We will review her records at [facility]. Currently not on any medications. Has not been following with any doctors for long time because she did not have any insurance. 02/25/24: here for f/u. She was started on losartan and spironolactone. She has tolerated it well. she continues to have DAMON. No CP. 07/21/2024: Here for follow-up after recent echocardiography. Echo-LV moderately dilated with EF 20 25%. [id number]-[id number] mitral valve regurgitation noted. She is complaining of shortness of breath with activities. She has COPD and also herniated disc and is quite immobile right now. Taking medications regularly. No bleeding concerns. [facility] Medical History (Updated 05/30/24 @ 13:34 by NICOLE Cooley) Cardiomyopathy EtOH dependence Central stenosis of spinal canal Radicular pain of left lower extremity CAD (coronary artery disease) Left bundle branch block CHF (congestive heart failure) COPD (chronic obstructive pulmonary disease) Personal history of nicotine dependence SOB (shortness of breath) Surgical History S/P cardiac catheterization H/O heart surgery History of cervical spinal surgery Family History Brother Mental health disorder Cardiovascular disease Mother Hypertension Father Cardiovascular disease Other Cancer Social History Household Members: None Both parents involved: No Caregiver staying overnight: No Housing: House Are you a primary school child care attendant to a significant other at home: No Do you presently have visiting nurse or other home services: No 75 years or older and lives alone: No Alcohol intake: current Comment: 4-5 drinks a day Patient Tobacco Use Status: Former Tobacco user Years Smoked: (onset 14yo, 1ppd x 30yrs, 30pyh - quit 10/2023) e-Cigarette/Vaping Use: Never Used Second Hand Smoke Exposure: No service: No Current occupational status: retired Cognitive needs: No Hearing needs: Yes Vision needs: Yes (wear glasses) Review of Systems Const Denies chills, Denies fatigue, Denies fever(s), Denies frequent falls, Denies weakness, Denies weight gain and Denies weight loss ENT Denies dizziness Card Denies chest pain, Denies leg edema, Denies lightheadedness, Denies palpitations, Denies dyspnea and Denies dyspnea on exertion Resp Denies cough, Denies dyspnea and Denies dyspnea on exertion GI Denies hematochezia Musc Denies abnormal gait, Denies muscle weakness, Denies numbness, Denies radiating pain into limb and Denies tingling Neuro Denies abnormal gait, Denies dizziness, Denies frequent falls, Denies numbness, Denies tingling and Denies weakness Endo Denies fatigue and Denies palpitations Physical Exam Vital Signs: Last Vital Signs Pulse 89 07/21/24 13:37 BP 110/64 07/21/24 13:37 BMI result Body Mass Index 25.5 GENERAL APPEARANCE: in no acute distress. NECK: no carotid bruit, no jugular venous distention. SKIN: no suspicious lesions, warm and dry. HEART: no murmurs, regular rate and rhythm. LUNGS: clear to auscultation bilaterally. ABDOMEN: soft, nontender. EXTREMITIES: no edema. PERIPHERAL PULSES: equal. NEUROLOGIC: No gross deficits, AAO X 3 Assessment & Plan Assessment & Plan (1) Cardiomyopathy: Code(s): I42.9 - Cardiomyopathy, unspecified Category: Medical (2) Left bundle branch block: Code(s): I44.7 - Left bundle-branch block, unspecified Category: Medical Plan [age] year female with background of alcohol use, tobacco abuse, severe LV dysfunction and coronary artery disease. She also has chronic left bundle-branch block with QRS duration of 160 milliseconds. She underwent cardiac catheterization which showed severe LAD and RCA stenosis which was treated with drug-eluting stent. She is taking Entresto and spironolactone currently. She is on aspirin and Plavix. Clinically euvolemic but continues to get dyspnea with activities. She has history of COPD and also has limited mobility due to back issues and there is some deconditioning present 2. Echocardiography has shown moderately dilated LV with severe LV dysfunction. She had severe coronary artery disease but despite revascularization LV function has not recovered and I suspect that left bundle-branch block is playing a role in her cardiomyopathy. I have discussed this with her in detail and I am going to refer for electrophysiology assessment for GAMB CUTTER D. I have advised her to cut back on alcohol and completely stopped. She is drinking couple of beers 2 to 3 times a week. Thank you for allowing me to participate in the care of your patient. Please feel free to contact me if you have any questions. Coding Level of Care Code Est Pt Level 4 (88331) Diagnoses Cardiomyopathy I42.9 Left bundle branch block I44.7
[2024-07-21 13:37] VITALS: BP 110/64; PULSE 89; BMI 25.5
== END 2024-07-21 14:05 | disposition home or self-care (01) ==
LOC: HO.HCS 13:24
PROVIDERS: PCP Nurse Practitioner Family; Visit Provider Internal Medicine Cardiovascular Disease
DX: I42.9 Cardiomyopathy, unspecified (principal); I44.7 Left bundle-branch block, unspecified
CPT/HCPCS: 99214

== ENCOUNTER → 2024-07-21 13:23 | Outpatient (BNVA) | payer OTHER, SELFPAY | PROVIDERS: PCP Nurse Practitioner Family; Visit Provider Internal Medicine Cardiovascular Disease | DX: I44.7 Left bundle-branch block, unspecified (principal); I42.9 Cardiomyopathy, unspecified; J44.9 Chronic obstructive pulmonary disease, unspecified; Z87.891 Personal history of nicotine dependence | CPT/HCPCS: 99212 ==

== ENCOUNTER 2024-07-25 13:16 | Outpatient (AMB) | payer OTHER, SELFPAY ==
--- NOTE | 2024-07-25 13:18 | HO.SPINEOV ---
Intake Visit Reasons: 2 month f/u Intake Note: Ms. 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 She is still having the pain going down her left leg. It is still bothering her when she walks. Unfortunately she recently learned that her heart rate is bradycardic and she is going to need a pacemaker. She is going for that next week. She is still also only 4 months into the 8 months of dual antiplatelet therapy that she needs for her stents. I told her to just finished out the 8 months and we can re-evaluate at that time. If she is still having leg pain I will get a new MRI and confirmed that disc herniation is still there and we can offer her diskectomy if that is the case. Total amount of time spent in this visit was 20 minutes in discussion of symptoms, lumbar MRI imaging results and subsequent plan of care Homero Ewing MD,PhD [facility] Coding Level of Care Code Est Pt Level 3 (78499) Diagnoses Lumbar disc herniation M51.26
== END 2024-07-25 13:35 | disposition home or self-care (01) ==
LOC: HO.HNS 13:17
PROVIDERS: PCP Nurse Practitioner Family; Visit Provider Physician Assistant
DX: M51.26 Other intervertebral disc displacement, lumbar region (principal)
CPT/HCPCS: 99213

== ENCOUNTER → 2024-07-25 13:16 | Outpatient (BNVA) | payer OTHER, SELFPAY | PROVIDERS: PCP Nurse Practitioner Family; Visit Provider Physician Assistant | DX: M51.26 Other intervertebral disc displacement, lumbar region (principal) | CPT/HCPCS: 99212 ==

== ENCOUNTER 2024-08-20 14:59 | Outpatient (AMB) | payer MEDICARE, SELFPAY ==
--- NOTE | 2024-08-20 15:21 | MHC.OFFVIS ---
Vital Signs 08/20/24 15:31 Height 5 ft 6 in Weight 156 lb 8.451 oz BMI 25.3 BP 96/60 Blood Pressure Location Lt brachial Position Sitting Pulse 76 Intake Visit Reasons: Discuss [place] Intake Note: Jennifer presents in the office as a follow up to discuss colonoscopy. CC: 4 months ago she had a cardiac surgery! 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 Will also do liver enzymes. Patient admits to drinking alcohol, beer daily. Spoke with Dr. Kruger and we will hold off on sending her for colonoscopy at this time even though it qualifies as diagnostic. Patient denies any melena, hematochezia, unintentional weight loss or ribbon like stools. Patient is going next week for CT scan of abdomen and pelvis. Constipation could be related to diverticular stricture and patient should have this CT scan done with oral contrast as well, however it might not be covered by her insurance. Patient will try fiber to help her bulk stools as well as start taking senna to help her eliminate her bowels. Patient will follow-up in 3 months to discuss colonoscopy and hopefully patient will be cleared. Discussed with patient the importance of abstinence from alcohol and tobacco. Patient is agreeable to current plan of care and verbalizes understanding of instructions. She was given the opportunity to ask questions and all questions answered. ? Thank you for allowing me to participate in her care Orders Lipase Today R10.9 Transglutaminase IgA Today R10.9 Magnesium Today N18.9 TSH reflex Free T4 Today K59.00 Vitamin D 25-OH (D2 and D3) Today E55.9 Vitamin B12 and Folate Today R19.7 Liver Panel Today R74.01 CT abdomen pelvis w IV con Today K57.90, R10.9, R19.8 New sennosides (Natural Senna Laxative) 17.2 mg (2 x 8.6 mg) PO BEDTIME 60 tabs 3RF constipation K59.00 TODAY'S VISIT Patient is here today for follow-up and to discuss colonoscopy. Due to her recent cardiac catheterization and drug-eluting stent patient is on Plavix and aspirin. Unable to come of the medication. She will need to be evaluated for defibrillator. Patient's EF is only 22%. Patient denies any GI concerning symptoms today. Reports that she is taking senna as needed and able to move her bowels better. Denies any abdominal pain or discomfort. Denies nausea or vomiting. Denies melena, hematochezia, unintentional weight loss or ribbon like stools. Denies any dyspepsia, dysphagia or odynophagia PFSH Medical History Cardiomyopathy EtOH dependence Central stenosis of spinal canal Radicular pain of left lower extremity CAD (coronary artery disease) Left bundle branch block CHF (congestive heart failure) COPD (chronic obstructive pulmonary disease) Personal history of nicotine dependence SOB (shortness of breath) Surgical History S/P cardiac catheterization H/O heart surgery History of cervical spinal surgery Family History Brother Mental health disorder Cardiovascular disease Mother Hypertension Father Cardiovascular disease Other Cancer Social History Household Members: None Both parents involved: No Caregiver staying overnight: No Housing: House Are you a primary career developer to a significant other at home: No Do you presently have visiting nurse or other home services: No 75 years or older and lives alone: No Alcohol intake: current Comment: 4-5 drinks a day Patient Tobacco Use Status: Former Tobacco user Years Smoked: (onset 14yo, 1ppd x 30yrs, 30pyh - quit 10/2023) e-Cigarette/Vaping Use: Never Used Second Hand Smoke Exposure: No service: No Current occupational status: retired Cognitive needs: No Hearing needs: Yes Vision needs: Yes (wear glasses) Review of Systems Const Denies weight gain and Denies weight loss ENT Reports no additional complaints, Denies dysphagia and Denies odynophagia Card Reports no additional complaints Resp Reports no additional complaints GI Reports abdominal pain (RUQ), Reports belching, Denies melena, Reports bloating, Denies change in bowel habits, Reports tenesmus, Denies dysphagia, Denies excessive flatus, Denies dyspepsia, Denies heartburn, Reports diarrhea, Denies loose stools, Denies nausea, Denies odynophagia and Denies vomiting Reports no additional complaints Musc Reports no additional complaints Neuro Reports no additional complaints Psych Reports no additional complaints Endo Reports no additional complaints Physical Exam Vital Signs: Last Vital Signs Pulse 76 08/20/24 15:31 BP 96/60 08/20/24 15:31 BMI result Body Mass Index 25.3 Const Other: Ambulating with cane General: healthy appearing, no acute distress and well developed Nutritional Appearance: well nourished Orientation/consciousness: patient oriented x3 Resp Effort & Inspection: normal respiratory effort, able to speak in complete sentences, no tracheal deviation and symmetric chest movement Auscultation: clear to auscultation bilaterally Cardio Rate: regular rate GI Inspection: Yes normal to inspection and No distended Palpation (GI): Soft to palpation, not firm, nontender and No hepatosplenomegaly present Auscultation: normal bowel sounds General: Yes no CVA tenderness Back/Spine/Pelvis Back: no CVA tenderness Skin General skin exam: elasticity normal, turgor normal and dry skin Neuro General: patient oriented x3 Psych Appearance: grossly normal Mental Status: mental status grossly normal Results Reviewed Results Reviewed: CT SCAN OF ABDOMEN AND PELVIS Findings: Heart is enlarged. The liver is normal in size without suspicious focal hepatic lesions. No intrahepatic or extrahepatic ductal dilatation is seen. The hepatic and portal veins are patent. No calcified gallstones in the gallbladder. Small fluid in the gallbladder fossa is nonspecific. Pancreas, spleen and adrenals are normal in appearance. No suspicious focal lesion of the kidneys. There is a cyst in the left kidney. No hydronephrosis or calculi. The abdominal aorta demonstrates no evidence of aneurysmal dilatation or dissection. Atherosclerosis calcification of the aorta and in the branches. Mild colonic diverticulosis with mild wall thickening of the sigmoid colon. No evidence of bowel obstruction. Appendix is normal. The pelvic organs are within normal limits. No intraperitoneal free air or fluid is visualized. No pathologic lymphadenopathy is seen. There are no osseous or soft tissue abnormalities. IMPRESSION: Colonic diverticulosis with mild bowel wall thickening of the sigmoid colon. Mild acute diverticulitis can not be excluded. Correlation with colonoscopy findings as indicated. Additional findings as above. Assessment & Plan Assessment & Plan (1) Abdominal bloating: Code(s): R14.0 - Abdominal distension (gaseous) Category: Medical (2) Abdominal pain: Code(s): R10.9 - Unspecified abdominal pain Category: Medical Qualifiers: Abdominal location: generalized Qualified Code(s): R10.84 - Generalized abdominal pain (3) Postprandial diarrhea: Code(s): K52.9 - Noninfective gastroenteritis and colitis, unspecified (4) Constipation: Code(s): K59.00 - Constipation, unspecified Qualifiers: Constipation type: slow transit constipation Qualified Code(s): K59.01 - Slow transit constipation (5) Burping: Code(s): R14.2 - Eructation Plan Patient was encouraged to increase fiber in her diet. We will send a script for Citrucel. Continue senna as needed. I voiced dietary triggers. Will hold off on setting patient up for colonoscopy. Patient is waiting to hear if she can proceed with the fibrillator, has a appointment with electrophysiology. Patient is agreeable to plan of care and verbalizes understanding of instructions. She was given the opportunity to ask questions and all questions answered. Thank you for allowing me to participate in her care Medications: New methylcellulose (laxative) (Citrucel) 500 mg PO BID 60 tabs 2RF Coding Level of Care Code Est Pt Level 3 (51698) Diagnoses Abdominal bloating R14.0 Generalized abdominal pain R10.84 Abdominal location: generalized Postprandial diarrhea K52.9 Slow transit constipation K59.01 Constipation type: slow transit constipation Burping R14.2 Time Spent (min) 25 Comment 15 minutes spent with patient and additional 10 minutes spent reviewing records
[2024-08-20 15:31] VITALS: BP 96/60; PULSE 76; BMI 25.3
== END 2024-08-20 16:08 | disposition home or self-care (01) ==
LOC: HO.HGI 15:00
PROVIDERS: PCP Nurse Practitioner Family; Visit Provider Nurse Practitioner Family
DX: R14.0 Abdominal distension (gaseous) (principal); R10.84 Generalized abdominal pain; K52.9 Noninfective gastroenteritis and colitis, unspecified; K59.01 Slow transit constipation; R14.2 Eructation
CPT/HCPCS: 99213

== ENCOUNTER → 2024-08-20 14:59 | Outpatient (BNVA) | payer MEDICARE, SELFPAY | PROVIDERS: PCP Nurse Practitioner Family; Visit Provider Nurse Practitioner Family | DX: R14.0 Abdominal distension (gaseous) (principal); R10.84 Generalized abdominal pain; K52.9 Noninfective gastroenteritis and colitis, unspecified; K59.01 Slow transit constipation; R14.2 Eructation | CPT/HCPCS: 99212 ==

== ENCOUNTER 2024-10-29 14:06 | Outpatient (REF) | payer MEDICARE, SELFPAY ==
--- OUTSIDE RECORDS SUMMARY | 2024-10-29 17:20 | XMS_ITS | Clinical Summary ---
Author Organization [facility] Address [address] [place] [id number] Phone Care Team Providers Care Cuff Slitter Name Role Phone Leigha Lobato NP Primary Care Provider Allergies No known active allergies Medications aspirin 81 mg Cap Take 81 mg by mouth. 5 Active VENTOLIN HFA 90 mcg/actuation inhaler inhale 2 puffs every 6 hours as needed for shortness of breath or wheezing 5 Active clopidogrel (PLAVIX) 75 mg tablet 5 Active ENTRESTO 49-51 mg per tablet 5 Active spironolactone (ALDACTONE) 25 MG tablet Take 25 mg by mouth daily. Active SENNA 8.6 mg tablet TAKE 2 TABLETS BY MOUTH AT BEDTIME FOR CONSTIPATION 5 Active Encounters Date Type Department Care Team Description 08/04/2024 Telephone [facility] [address], [address] [place] [address] Yahir Zepeda MD 08/01/2024 3:20 PM EDT Office Visit [facility] [address], [address] [place] [address] Yahir Zepeda MD Cardiomyopathy, unspecified type (Primary Dx); Chronic systolic congestive heart failure from Last 3 Months Social History Tobacco Use Types Packs/Day Years Used Date Smoking Tobacco: Never Assessed Education Answer Date Recorded Are you interested in more education? Not on yunier e 07/21/2024 Are you concerned about learning? Not on file 07/21/2024 No 07/21/2024 No 07/21/2024 Digital Access Answer Date Recorded No 07/21/2024 No 07/21/2024 Reliable internet access at home? Not on file 07/21/2024 Device with a working camera? Not on file Comments Unknown Sex and Gender Information Value Date Recorded Sex Assigned at Not on file Legal Sex Female 8:08 AM EDT Gender Identity Not on file Sexual Orientation Not on file Last Filed Vital Signs Vital Sign Reading Time Taken Comments Blood Pressure 108/68 08/01/2024 3:33 PM EDT Pulse 89 08/01/2024 3:33 PM EDT Temperature - - Respiratory Rate - - Oxygen Saturation 97% 08/01/2024 3:33 PM EDT Inhaled Oxygen Concentration - - Weight 71.2 kg (157 lb) 08/01/2024 3:33 PM EDT Height - - Body Mass Index - - Plan of Treatment Upcoming Encounters Date Type Department Care Team (Late st Contact Info) Description 11/12/2024 8:40 AM EDT Office Visit [facility] [address] [place] [address] [address] Floor, [address] [place] [address] Yahir Zepeda MD [address] [place] [id number] [email or web address] Health Maintenance Due Date Last Done Comments Adult Td,Tdap Booster 1959 LIPID PANEL 1959 POTASSIUM LEVEL 1959 DEPRESSION SCREENING 1971 SMOKING Hx and SMOKELESS TOB ACCO SCREENING 09/10/1972 HEPATITIS C SCREENING 09/10/1977 HIV ONE-TIME SCREENING (18-6 5 YEARS) 09/10/1977 PNEUMOCOCCAL VACCINES (50+ y ears) (1 of 2 - PCV) 09/10/1978 MAMMOGRAM 1999 COLOGUARD 09/10/2004 COLONOSCOPY 09/10/2004 COLORECTAL CANCER SCREENING 09/10/2004 FIT TEST 09/10/2004 FOBT 09/10/2004 SIGMOIDOSCOPY 09/10/2004 VIRTUAL COLONOSCOPY 09/10/2004 ZOSTER VACCINES (1 of 2) 09/10/2009 RSV VACCINE (1 - Risk 60-74 years 1-dose series) 2019 OSTEOPOROSIS SCREENING INITI AL (ONE-TIME) 09/10/2024 INFLUENZA VACCINE (#1) 2024 COVID-19 VACCINE ( - 2023-2 5 season) 2024 HEPATITIS A VACCINES Aged Out No long er eligible based on patient's age to complete this topic HIB VACCINES Aged Out No longer eligi ble based on patient's age to complete this topic MENINGOCOCCAL VACCINES (ACWY) Aged Out No longer eligible based on patient's age to complete this topic MENINGOCOCCAL VACCINES (B) Aged Out N o longer eligible based on patient's age to complete this topic Medical Devices Not on file Insurance [place] [place] [address] [place] [address] [place] [address] [place] [address] [place] [address] [place] [address] ACO Care Teams Cuff Slitter Relationship Specialty Start Date End Date Leigha Lobato NP [address] [place] [address] [email or web address] PCP - General Nurse Practitioner 07/21/24 Additional Source Comments The information contained in this document represents components of the legal health record. It is not the complete legal health record.[facility]
[2024-10-29 18:19] LABS: MANUAL DIFF FLAG NO
[2024-10-29 18:39] LABS: Hematocrit 39.0 % (37.0-47.0); Hemoglobin 12.5 g/dl (12.0-16.0); Imm Gran Abs Auto 0.02 X10*3/uL (0.00-0.03); Imm Gran Pct Auto 0.3 % (0.0-0.4); Lymphocytes Absolute Auto 1.6 X10*3/uL (1.2-4.9); Mean Corpuscular HGB Conc 32.1 g/dl (31.0-35.0); Mean Corpuscular Hemoglobin 30.9 pg (27.0-33.0); Mean Corpuscular Volume 96.5 fL (80.0-98.0); NRBC Abs Auto 0.000 X10*3/uL (0.0-0.012); NRBC Pct Auto 0.0 /100WBC (0.0-0.2); Platelet Count 236 X10*3/uL (160-400); Red Blood Count 4.04 X10*6/uL (4.20-5.50); White Blood Count 7.1 X10*3/uL (4.8-10.8)
[2024-10-29 18:46] LABS: INTERNATIONAL NORM RATIO 0.9 (0.9-1.1); Prothrombin Time 10.8 SEC (10.9-12.4)
[2024-10-29 18:54] LABS: Anion Gap 12 (12-20); Blood Urea Nitrogen 11 mg/dL (9-16); Calcium 8.9 mg/dL (8.4-10.2); Carbon Dioxide 23 mmol/L (22-29); Chloride 111 mmol/L (96-108); Estimated Glomerular Filt Rate > 60; Potassium 4.3 mmol/L (3.3-5.1); Sodium 142 mmol/L (135-145)
== END 2024-10-29 14:07 | disposition home or self-care (01) ==
LOC: HO.WFDLDS 14:06
PROVIDERS: Internal Medicine; Referring Provider Nurse Practitioner Family; Visit Provider Nurse Practitioner Family
DX: Z01.818 Encounter for other preprocedural examination (principal); I50.9 Heart failure, unspecified
CPT/HCPCS: 36415; 80048; 85025; 85610